=== PATIENT | female | born 1990 | race Caucasian/White ===

== ENCOUNTER 2018-10-16 02:35 | Inpatient (IN) ==
--- OUTSIDE RECORDS SUMMARY | 2018-10-16 02:42 | External Medical Summary | Continuity of Care Document ---
:1990 Author Name Taty Freed, Provider Address Unavailable Unavailable , Care Team Providers Name Role Phone Unavailable Unavailable Unavailable Salud [email or web address] [email or web address], NO Unavailable Unavailable Unavailable Unavailable Unavailable Problems Encounter for routine gynecological exam ination with Papanicolaou smear of cervix (V72.31) (Z01.419) Counseling for initiation of control method (V25.02) ( Z30.09) Allergies and Adverse Reactions No Known Drug Allergies (Allergy) Medications Previfem 0.25-35 MG-MCG Oral Tablet; ROBERTA E 1 TABLET BY MOUTH ONE TIME DAILY DIRECTED Lourdes Lund Start: 04-Nov-2014 Quantity: 28 Refills: 0 Procedures History of Oral Surgery Tooth Extraction Status: Completed Counseling for initiation of control method Immunizations Immunizations not documented Social History - Smoking Status Never smoker Interventions Discussion/SummaryI reviewed PAP results for Ms. CIERRA ROE. Pap Smear is normal Although pap smears are not recommended every year for many women, it is still recommended that you have a yearly gynecology visit. Plan of Treatment Planned Observations Planned Goals not documented Results No Known Results Results not documented
[2018-10-16] MEDS ORDERED: OXYTOCIN 30 UNITS/500 ML BAG IV PRN ×3 (03:15→19:27)
[2018-10-16 04:05] LABS: Hemoglobin 13.2 g/dL (12.0-16.0); Mean Corpuscular Volume 86.8 fL (80-100); Mean Platelet Volume 10.4 fL (7.4-10.4); Platelet Count 169 K/uL (130-400); RDW Coefficient of Variation 12.9 % (11.5-14.5); RDW Standard Deviation 41.2 fL (36.4-46.3); Red Blood Count 4.38 M/uL (4.2-5.4); White Blood Count 8.76 K/uL (4.8-10.8)
[2018-10-16 04:22] LABS: Mean Corpuscular Hgb Conc 34.7 g/dL (32-36)
[2018-10-16] MEDS ORDERED: BUPIVACAINE 0.25% 30 ML VIAL ONE (07:39)
[2018-10-16] MEDS ORDERED: fentaNYL citrate 100 MCG/2 ML VIAL ONE (07:40)
[2018-10-16] MEDS ORDERED: ePHEDrine sulfate 50 MG/ML AMP ONE (07:40)
[2018-10-16] MEDS ORDERED: fentaNYL 2MCG/ML ROPIV 1.25MG/ML 100 ML BAG EPI ONE (07:40)
[2018-10-16] MEDS: LACTATED RINGER'S 1,000 ML IV PRN ×3 (07:47→17:47)
[2018-10-16] MEDS ORDERED: DiphenhydrAMINE HCL 50 MG/ML VIAL IV PRN (07:52)
[2018-10-16] MEDS ORDERED: NALOXONE HCL 0.4 MG/1 ML VIAL/CARP IV PRN (07:52)
[2018-10-16] MEDS ORDERED: ONDANSETRON INJ 2 MG/ML 2 ML VIAL IV PRN (07:52)
[2018-10-16] MEDS ORDERED: ePHEDrine sulfate 50 MG/ML AMP IV PRN (07:52)
[2018-10-16] MEDS ORDERED: NALOXONE HCL 1 MG in SODIUM CHLORIDE 0.9% 1000ML 1,000 ML IV PRN (07:52)
[2018-10-16] MEDS ORDERED: NALBUPHINE HCL INJ 10 MG/ML AMP IV PRN (07:52)
--- NOTE | 2018-10-16 07:55 | Anesthesiology Consultation ---
Date of Service October 16, 2018 Assessment & Plan (1) Encounter for pre-operative examination: Chart Review Chart Review: Patient NOT seen in Pre Admission Testing and Acceptable Risk for Labor Epidural Consults Requested none History Height/Weight Height: 5 ft 3 in Weight: 77.564 kg Allergies Allergy/AdvReac Type Severity Reaction Status Date / Time No Known Allergies Allergy Verified 10/16/18 03:43 Medications Home Medications Medication Instructions Recorded Confirmed Last Taken vit no.[id number] 1 tab PO DAILY 10/16/18 10/16/18 10/14/18 08:00 [ Vitamin] Active Medications Generic Name Dose Route Start Last Admin Trade Name Freq PRN Reason Stop Dose Admin Lactated Ringer's 1,000 mls @ 125 mls/hr 10/16/18 03:15 10/16/18 07:47 Lr IV 10/18/18 03:14 999 mls/hr .Q8H PRN Administration L&D Protocol Protocol Past Medical History Medical History [place] teeth removed healthy Exercise / Class Metabolic Activity II 4-5 Yardwork/Stairs/Walk up hill Past Surgical History Surgical History History of tonsillectomy Past Anesthesia History No Hx of Anesthesia Complications and No Family Hx of Anesthesia Complications History of PONV No Hx of PONV and No Hx of Motion Sickness Social History Smoking Status: Never smoker Do You Dip or Chew Tobacco: No Hx Alcohol Use: No Hx Substance Use: No substance use type: does not use Physical Exam Vital Signs Last Vital Signs Temp 36.5 C 10/16/18 07:10 Pulse 72 10/16/18 08:10 Resp 20 10/16/18 07:10 BP 135/84 10/16/18 08:10 Pulse Ox 100 10/16/18 08:07 Testing Laboratory Results 10/16/18 03:54
[2018-10-16] MEDS: fentaNYL 2MCG/ML ROPIV 1.25MG/ML 100 ML BAG EPI PRN ×3 (09:06→18:11)
[2018-10-16] MEDS ORDERED: METHYLERGONOVINE MALEATE 0.2 MG/ML AMP ONE (19:10)
[2018-10-16] MEDS ORDERED: DIPHTHERIA/TETANUS/PERTUSSIS 0.5 ML SYR/VIAL IM ONE (19:27)
[2018-10-16] MEDS ORDERED: BISACODYL 10 MG SUPP PR PRN (19:27)
[2018-10-16] MEDS ORDERED: BENZOCAINE 20% AER SPR 82.5 GM CAN EXT PRN (19:27)
[2018-10-16] MEDS ORDERED: HYDROCORTISONE ACETATE 25 MG SUPP PR PRN (19:27)
[2018-10-16] MEDS ORDERED: SUPERCREAM 0.870% 15 GM JAR EXT PRN (19:27)
[2018-10-16] MEDS ORDERED: OXYCODONE/ACETAMINOPHEN 5mg/325mg TAB PO PRN (19:27)
[2018-10-16] MEDS ORDERED: METHYLERGONOVINE MALEATE 0.2 MG/ML AMP IM ONE (19:27)
[2018-10-16] MEDS: IBUPROFEN 600 MG TAB PO PRN (20:05)
--- NOTE | 2018-10-16 20:10 | Anesthesia Procedure Note ---
Date of Service October 16, 2018 Anesthesia Post Epidural Note Vital Signs Vital Signs: Temp Pulse Resp BP Pulse Ox 36.8 C 93 H 18 118/69 99 10/16/18 19:13 10/16/18 19:58 10/16/18 19:43 10/16/18 19:58 10/16/18 19:03 Notes Mental Status: alert / awake / arousable Patient Amnestic to Procedure: No Nausea / Vomiting: adequately controlled Pain: adequately controlled Airway Patency, RR, SpO2: stable & adequate BP & HR: stable & adequate Hydration State: stable & adequate Neuraxial Anesthesia: was administered and sensory block is resolving Anesthetic Complications: no major complications apparent and Pt Satisfied with anesthetic care Epidural: Removed without complications and With tip intact
[2018-10-16] MEDS: DOCUSATE SODIUM 100 MG CAP PO SCH (21:18)
[2018-10-16] MEDS: ACETAMINOPHEN 325 MG TAB PO PRN (22:59)
--- NOTE | 2018-10-16 23:38 | Operative Report ---
DATE OF OPERATION: 10/16/2018 DELIVERY NOTE She was admitted in active labor. Blood type is O positive, group B strep negative. Due date is 10/17/2018. Started out with a spontaneous unstimulated labor, spontaneous rupture of membranes. Eventually she requested and received epidural anesthesia for pain control. She started to push. Contractions were sporadic. She was not making much progress, so we augmented her contractions with IV Pitocin to get them down to a good rate and then she began to push and pushed some on her knees and eventually crowned the , pushed out with a tight nuchal cord which had to be clamped and cut. The position was an LOP position. After head crowned and cord was cut, shoulders were delivered without difficulty. was suctioned through the mouth and the nose before delivery of the body and was handed off for some resuscitation. Cord blood was taken with IV Pitocin running. Placenta was removed intact. There was a little bit of uterine atony following this. Placental rate was turned up. She was given 0.2 of Methergine. Inspection of the perineum revealed a very superficial first-degree laceration at about 4 o'clock in the vaginal opening and this was repaired with a running Vicryl out and to beyond the hymenal ring. A separate suture was used to approximate the bulbocavernosus muscles, that was a deep suture, and then a running subcuticular suture was used to approximate the perineal skin edges. Following this, vag exam including rectovaginal examination revealed no hematoma formation or sponges in the vagina. Estimated blood loss was 300 mL. I attest to the content of the Intraoperative Record and any orders documented therein. Any exception s are noted below.
[2018-10-17] MEDS: IBUPROFEN 600 MG TAB PO PRN ×3 (00:46→15:47)
[2018-10-17] MEDS: ACETAMINOPHEN W/CODEINE #3 1 TAB PO PRN ×2 (03:49→18:26)
[2018-10-17 06:03] LABS: Hematocrit (blood only) 35.5 % (37-47); Hemoglobin 12.1 g/dL (12.0-16.0); Mean Corpuscular Hgb Conc 34.1 g/dL (32-36); Mean Corpuscular Volume 87.7 fL (80-100); Mean Platelet Volume 9.6 fL (7.4-10.4); Platelet Count 141 K/uL (130-400); Red Blood Count 4.05 M/uL (4.2-5.4); White Blood Count 14.38 K/uL (4.8-10.8)
--- NOTE | 2018-10-17 08:44 | Obstetrical Progress Note ---
Date of Service October 17, 2018 Subjective Patient is seen and examined. She feels well, no complaints. Ambulating without dizziness Voiding without difficulty Tolerating regular diet with out N&V Bleeding is minimal No fever/ chills/ CP/ SOB/ N&V/ Leg pain Breast feeding without problems Vital Signs Temp Pulse Pulse Resp BP BP Pulse Ox 10/17/18 03:22 36.4 C L 77 16 117/74 94 10/16/18 23:35 36.9 C 86 16 113/75 96 10/16/18 21:40 36.4 C L 95 H 20 129/77 96 10/16/18 21:13 36.8 C 100 H 18 119/66 10/16/18 20:58 108 H 114/65 10/17/18 10/16/18 Range/Units 05:52 Unknown WBC 14.38 H (4.8-10.8) K/uL RBC 4.05 L (4.2-5.4) M/uL Hgb 12.1 (12.0-16.0) g/dL Hct 35.5 L (37-47) % MCV 87.7 (80-100) fL MCH 29.9 (25-34) pg MCHC 34.1 (32-36) g/dL RDW Std Deviation 42.0 (36.4-46.3) fL RDW Coeff of Hui 13.0 (11.5-14.5) % Plt Count 141 (130-400) K/uL MPV 9.6 (7.4-10.4) fL Amniotic Protein POS PE: General: Alert, orientedx3, NAD Abd: soft, NT, fundus firm, below Umbilicus Perineum intact, Lochia rubra minimal Ext; NT, no edema AP: 28 yo s/p , ppd# 1 VSS Afebrile doing well Continue routine care All questions were answered Results & Data Vital Signs (Past 12 Hours) Vital Signs Temp Pulse Pulse Resp BP BP Pulse Ox 10/17/18 03:22 36.4 C L 77 16 117/74 94 10/16/18 23:35 36.9 C 86 16 113/75 96 10/16/18 21:40 36.4 C L 95 H 20 129/77 96 10/16/18 21:13 36.8 C 100 H 18 119/66 10/16/18 20:58 108 H 114/65
[2018-10-17] MEDS: PRENATAL VITAMIN 1 TAB PO SCH (09:54)
[2018-10-17] MEDS: FERROUS SULFATE 325 MG TAB PO SCH (09:54)
[2018-10-17] MEDS: DOCUSATE SODIUM 100 MG CAP PO SCH ×2 (09:54→19:35)
[2018-10-17] MEDS: ACETAMINOPHEN 325 MG TAB PO PRN (12:33)
[2018-10-17] MEDS ORDERED: BISACODYL 5 MG TABEC PO SCH (20:00)
[2018-10-18] MEDS: IBUPROFEN 600 MG TAB PO PRN ×3 (01:25→14:20)
[2018-10-18] MEDS: ACETAMINOPHEN 325 MG TAB PO PRN (07:15)
[2018-10-18 07:24] LABS: Hemoglobin 11.5 g/dL (12.0-16.0)
[2018-10-18] MEDS: FERROUS SULFATE 325 MG TAB PO SCH (08:27)
[2018-10-18] MEDS: DOCUSATE SODIUM 100 MG CAP PO SCH (08:27)
[2018-10-18] MEDS: PRENATAL VITAMIN 1 TAB PO SCH (08:27)
--- NOTE | 2018-10-18 13:21 | Obstetrical Progress Note ---
Date of Service October 18, 2018 Assessment & Plan (1) normal course: PPD #2 pt doing well d/c home with instructions Subjective Ambulation: ambulating normally Voiding: no voiding problems Passing Gas:: Yes Diet Tolerance:: regular diet Lochia:: Small Feeding Type:: breast feeding Review of Systems All systems reviewed & are unremarkable except as noted in HPI & below Physical Exam Constitutional WD/WN, vitals as above well developed and well nourished Eyes PERRL, conjunctivae normal, anicteric sclerae Neck trachea midline, no thyromegaly Respiratory normal respiratory effort, lungs clear to auscultation Auscultation: no crackles, no rales and no wheezes Cardiovascular RRR, no murmur, no edema Gastrointestinal (Abdomen) normal bowel sounds, soft, nontender, no hepatosplenomegaly Uterus is below umbilicus Musculoskeletal no cyanosis or clubbing, extremities motor strength 5/5 Skin no rashes, warm and dry Neurologic patellar DTR's 2+ bilat, sensation intact Psychiatric A+Ox3, euthymic affect Genitourinary normal external appearance Results & Data Vital Signs (Past 12 Hours) Vital Signs Temp Pulse Resp BP Pulse Ox 10/18/18 07:45 36.4 C L 68 18 116/80 97
== END 2018-10-18 15:45 | disposition home or self-care (01) | DRG 807 ==
LOC: OPB 02:35 → 4S1 02:41 → MERGE 03:15 → 4S2 21:51
DX: Z3A.39 39 weeks gestation of pregnancy; Z37.0 Single live birth; O70.0 First degree perineal laceration during delivery; O69.81X0 Labor and delivery complicated by cord around neck, without compression, not applicable or unspecified

== ENCOUNTER 2020-10-13 06:56 | Inpatient (IN) ==
--- NOTE | 2020-10-12 09:38 | Anesthesiology Consultation ---
Date of Service October 12, 2020 Assessment & Plan (1) Encounter for pre-operative examination: COVID screening: Per assessment on 10/12: Travel screen negative, no known COVID- 19 positive contacts or current COVID-19 related symptoms. Surgeon arranged preop COVID testing (done 10/11; [facility])- negative. Chart Review Chart Review: entry engineer initiated History Surgery Operation Date: 10/13/20 09:00 Proposed Procedures p Section in LD - Joseph Garland MD Height/Weight Height: 5 ft 3 in Weight: 83.007 kg Allergies Allergy/AdvReac Type Severity Reaction Status Date / Time No Known Allergies Allergy Unverified 10/12/20 08:47 Medications Home Medications Medication Instructions Recorded Confirmed Last Taken Vitamin 1 tab PO DAILY 10/16/18 10/12/20 10/14/18 08:00 Lactobacillus acidophilus 10,000 mmu cells PO QPM 10/12/20 10/12/20 Unknown [Probiotic] Past Medical History Medical History Hx gestational diabetes with previous Past Family History Family History Other No family history of adverse response to anesthesia Past Surgical History Surgical History History of tonsillectomy Nausea and vomiting after administration of anesthetic agent [place] teeth removed Social History Smoking Status: Never smoker Hx Alcohol Use: No Hx Substance Use: No substance use type: does not use
[~2020-10-13 06:56] MED LIST: CITRIC ACID/SODIUM CITRATE 15 ML UDC PO SCH; ceFAZolin 2000MG 2,000 MG/15 ML SYR IV SCH
[2020-10-13 07:50] LABS: Basophils # (auto) 0.02 K/uL (0-0.2); Basophils % (auto) 0.3 %; Eosinophils # (auto) 0.05 K/uL (0-0.5); Eosinophils % (auto) 0.7 %; Hematocrit (blood only) 37.2 % (37-47); Hemoglobin 12.5 g/dL (12.0-16.0); Immature Granulocytes # (auto) 0.03 K/uL (0.00-0.02); Immature Granulocytes % (auto) 0.4 %; Lymphocytes # (auto) 1.76 K/uL (1.2-3.4); Lymphocytes % (auto) 23.7 %; Mean Corpuscular Hemoglobin 29.6 pg (25-34); Mean Corpuscular Hgb Conc 33.6 g/dL (32-36); Mean Corpuscular Volume 88.2 fL (80-100); Mean Platelet Volume 9.9 fL (7.4-10.4); Monocytes # (auto) 0.64 K/uL (0.11-0.59); Monocytes % (auto) 8.6 %; Neutrophils # (auto) 4.94 K/uL (1.4-6.5); Neutrophils % (auto) 66.3 %; Platelet Count 196 K/uL (130-400); RDW Coefficient of Variation 13.6 % (11.5-14.5); RDW Standard Deviation 44.3 fL (36.4-46.3); Red Blood Count 4.22 M/uL (4.2-5.4); White Blood Count 7.44 K/uL (4.8-10.8)
[2020-10-13] MEDS ORDERED: LACTATED RINGER'S 1,000 ML IV PRN (08:00)
[2020-10-13] MEDS ORDERED: OXYTOCIN 30 UNITS/500 ML BAG IV PRN (08:00)
--- NOTE | 2020-10-13 08:01 | Ultrasound Report ---
US OB limited HISTORY: None. presentation TECHNIQUE: Multiple transabdominal sonographic images of the pelvic structures were obtained assessi ng reyes scale appearance. COMPARISON: None FINDINGS: GENERAL OBSERVATIONS: Limited evaluation of the gravid uterus for positioning was performed and shows breech presenta tion. heart activity was detected and measuring 141 bpm. IMPRESSION: Breech presentation. heart rate is 141 bpm. Electronically signed by: Luz Jung DO 10/13/2020 8:00 AM
--- NOTE | 2020-10-13 08:13 | History & Physical Report ---
Date of Service October 13, 2020 Assessment & Plan (1) Breech presentation: Admission and Anticipated Discharge Date Admission Date: October 13, 2020 History of Present Illness Primary Care Provider: NO PCP 30 F P1001 at 39.3 weeks admitted for for breech presentation. Bedside ultrasound today confirms breech presentation. Allergies Allergy/AdvReac Type Severity Reaction Status Date / Time No Known Allergies Allergy Unverified 10/12/20 08:47 Home Medications Medication Instructions Recorded Confirmed Type Vitamin 1 tab PO DAILY 10/16/18 10/13/20 History Lactobacillus acidophilus 10,000 mmu cells PO QPM 10/12/20 10/13/20 History [Probiotic] Patient History Medical History Hx gestational diabetes with previous Surgical History History of tonsillectomy Nausea and vomiting after administration of anesthetic agent [place] teeth removed Family History Other No family history of adverse response to anesthesia Social History Smoking Status: Never smoker Second Hand Exposure: No; Hx Alcohol Use: No Hx Substance Use: No Preferred Language: Beninese Communication Ability: Effective Continuity Writer Required: No Beliefs That Will Affect Care: None marital status: Current Living Situation: Family Feels Safe at Home: Yes Safety Concerns: Feels Safe At This Time Assistive Devices: Glasses OB History x1 GDM with prior Review of Systems All systems reviewed & are unremarkable except as noted in HPI & below Physical Exam Constitutional: WD/WN, vitals as above well developed and comfortable Eyes: PERRL, conjunctivae normal, anicteric sclerae Respiratory: normal respiratory effort, lungs clear to auscultation Cardiovascular: RRR, no murmur, no edema Rate/Rhythm: regular rate Gastrointestinal (Abdomen): Inspection/Auscultation: abdomen normal to inspection Percussion/Palpation: abdomen soft Skin: no rashes, warm and dry Neurologic: patellar DTR's 2+ bilat, sensation intact Psychiatric: A+Ox3, euthymic affect Genitourinary: OB Exam Monitor Tracing: + external FHT monitor used, + external uterine monitor used, + category I and + normal FHT variability Results & Data ([facility]) Vital Signs (Past 12 Hours) Vital Signs Temp Pulse Resp BP 10/13/20 07:15 36.8 C 90 18 126/72 10/13/20 07:07 90 126/72 Laboratory Results 10/13/20 07:24 WBC 7.44 RBC 4.22 Hgb 12.5 Hct 37.2 MCV 88.2 MCH 29.6 MCHC 33.6 RDW Std Deviation 44.3 RDW Coeff of Hui 13.6 Plt Count 196 MPV 9.9 Immature Gran % (Auto) 0.4 Neut % (Auto) 66.3 Lymph % (Auto) 23.7 [place] % (Auto) 8.6 Eos % (Auto) 0.7 Baso % (Auto) 0.3 Neut # (Auto) 4.94 Lymph # (Auto) 1.76 [place] # (Auto) 0.64 H Eos # (Auto) 0.05 Baso # (Auto) 0.02 Immature Gran # (Auto) 0.03 H Monitoring External Monitor FHT Cat 1
[2020-10-13] MEDS ORDERED: LACTATED RINGER'S 1,000 ML IV SCH ×2 (08:15→13:30)
[2020-10-13] MEDS ORDERED: MoRPHine SULFATE PF 1 MG/ML 10 ML AMP/VIAL ONE (11:26)
[2020-10-13] MEDS ORDERED: fentaNYL citrate 100 MCG/2 ML VIAL ONE (11:26)
[2020-10-13] MEDS ORDERED: OXYTOCIN 10 UNITS/ML VIAL ONE (11:26)
[2020-10-13] MEDS ORDERED: NALOXONE HCL 0.4 MG/1 ML VIAL/CARP IV PRN (11:35)
[2020-10-13] MEDS ORDERED: LACTATED RINGER'S 500 ML IV PRN (11:35)
[2020-10-13] MEDS ORDERED: PROMETHAZINE HCL 25 MG in SODIUM CHLORIDE 0.9% 50 ML IV PRN ×2 (11:35→13:26)
[2020-10-13] MEDS ORDERED: ONDANSETRON INJ 2 MG/ML 2 ML VIAL IV PRN ×2 (11:35→13:26)
[2020-10-13] MEDS ORDERED: NALOXONE HCL 0.08 MG in SYRINGE 1.8 ML IV PRN (11:35)
[2020-10-13] MEDS ORDERED: MoRPHine SULFATE PF 1 MG/ML 10 ML AMP/VIAL INT SPINAL ONE (11:35)
[2020-10-13] MEDS ORDERED: NALOXONE HCL 1 MG in SODIUM CHLORIDE 0.9% 1000ML 1,000 ML IV PRN (11:35)
[2020-10-13] MEDS ORDERED: diphenhydrAMINE 50 MG/ML VIAL IV PRN ×2 (11:35→13:26)
[2020-10-13] MEDS ORDERED: ePHEDrine sulfate 50 MG/ML AMP IV PRN (11:35)
[2020-10-13] MEDS ORDERED: HYDROmorphone INJ 0.5 MG/0.5 ML SYR IV PRN (11:35)
[2020-10-13] MEDS ORDERED: SODIUM CHLORIDE 0.9% 1000ML 1,000 ML IV SCH (11:45)
[2020-10-13] MEDS ORDERED: NO NARCOTICS OR SEDATIVES SCH (11:45)
[2020-10-13] MEDS ORDERED: DC INTRASPINAL MORPHINE SCH (11:45)
[2020-10-13] MEDS ORDERED: PHENYLEPHRINE 100MCG/ML 5ML SYR ONE (12:15)
[2020-10-13] MEDS ORDERED: ePHEDrine sulfate 50 MG/ML SYR ONE (12:15)
--- NOTE | 2020-10-13 13:09 | Post Operative Brief Note ---
Immediate Post Op Note v1 Date of Surgery October 13, 2020 Pre & Post Diagnosis Operation Date: 10/13/20 09:00 Pre-Op Diagnosis: Breech presentation Post-Op Diagnosis: Footling breech presentation I identified the patient and participated in the time-out.: Yes Procedure Operation Date: 10/13/20 09:00 Actual Procedures p Section in LD; Live female child at 1229(Bilateral) - Joseph Garland MD Surgeon Joseph Garland MD Nursing Staffing Coordinator Dr Gonzales Estimated Blood Loss 550 Findings Consistent with Post-Op Diagnosis live female Apgars 9/9 double footling breech with nuchal cord x1 Fluids 1300 Specimens cord blood placenta Drains Gonzalez Catheter (Inserted after spinal anesthesia, patent and draining clear yellow urine throughout procedure) Anesthesia Type Spinal Complications none Disposition Accompanied Patient To Recovery: Yes Disposition: L&D Overlapping Procedure I was present for: the critical portions of procedure. I was immediately available: during the entire case. Back up surgeon: used during listed procedure.
[2020-10-13] MEDS ORDERED: KETOROLAC 30 MG/ML VIAL IV PRN (13:26)
[2020-10-13] MEDS ORDERED: BENZOCAINE 20% AER SPR 82.5 GM CAN EXT PRN (13:26)
[2020-10-13] MEDS ORDERED: SUPERCREAM 0.870% 15 GM JAR EXT PRN (13:26)
[2020-10-13] MEDS ORDERED: MAGNESIUM HYDROXIDE SUSP 30 ML UDC PO PRN (13:26)
[2020-10-13] MEDS ORDERED: MEPERIDINE HCL 50 MG/ML CARP IV PRN (13:26)
[2020-10-13] MEDS ORDERED: SENNA 8.6 MG TAB PO PRN (13:26)
[2020-10-13] MEDS ORDERED: HYDROCORTISONE ACETATE 25 MG SUPP PR PRN (13:26)
[2020-10-13] MEDS ORDERED: diphenhydrAMINE Capsule 25 MG CAP PO PRN (13:26)
[2020-10-13] MEDS ORDERED: DIPHTHERIA/TETANUS/PERTUSSIS 0.5 ML SYR/VIAL IM ONE (13:26)
[2020-10-13] MEDS ORDERED: OXYTOCIN 20 UNITS in LACTATED RINGER'S 1,000 ML IV SCH (14:30)
--- NOTE | 2020-10-13 15:06 | Anesthesiology Progress Note ---
Date of Service October 13, 2020 Anesthesia Post Procedure Vital Signs Vital Signs: Temp Pulse Resp BP Pulse Ox 10/13/20 15:02 91 H 99 10/13/20 14:57 92 H 99 10/13/20 14:56 67 106/62 10/13/20 14:52 79 98 10/13/20 14:47 95 H 98 10/13/20 14:46 94 H 114/71 10/13/20 14:42 86 97 10/13/20 14:40 36.2 C L 10/13/20 14:37 85 97 10/13/20 14:36 97 H 113/68 10/13/20 14:32 95 H 97 10/13/20 14:27 91 H 97 10/13/20 14:26 89 114/62 10/13/20 14:22 81 97 10/13/20 14:17 81 97 10/13/20 14:16 77 110/66 10/13/20 14:12 79 96 10/13/20 14:07 72 96 10/13/20 14:06 71 112/66 10/13/20 14:02 82 96 10/13/20 13:57 81 96 10/13/20 13:56 81 109/65 10/13/20 13:52 101 H 97 10/13/20 13:47 86 96 10/13/20 13:46 77 116/73 10/13/20 13:42 75 97 10/13/20 13:37 76 97 10/13/20 13:36 73 112/74 10/13/20 13:32 78 97 10/13/20 13:27 89 99 10/13/20 13:25 36.4 C L 77 18 111/66 10/13/20 13:22 79 99 10/13/20 13:17 84 116/70 100 10/13/20 11:48 77 100 10/13/20 11:43 88 100 10/13/20 11:38 113 H 99 10/13/20 11:33 79 100 10/13/20 11:32 98 H 94 10/13/20 11:28 86 100 10/13/20 11:23 88 100 10/13/20 11:18 80 98 10/13/20 11:13 80 99 10/13/20 11:08 90 99 10/13/20 11:03 78 99 10/13/20 10:58 79 98 10/13/20 10:53 84 98 10/13/20 10:48 81 97 10/13/20 10:43 86 98 10/13/20 10:42 36.7 C 83 18 104/68 10/13/20 10:38 85 98 10/13/20 10:33 94 H 97 10/13/20 10:28 88 98 10/13/20 10:23 89 98 10/13/20 10:18 92 H 97 10/13/20 10:13 94 H 97 10/13/20 10:08 79 98 10/13/20 10:03 92 H 97 10/13/20 09:58 84 97 10/13/20 09:53 86 96 10/13/20 09:48 83 98 10/13/20 09:43 85 97 10/13/20 09:38 84 97 10/13/20 09:33 82 96 10/13/20 09:28 83 96 10/13/20 09:23 88 98 10/13/20 07:15 36.8 C 90 18 126/72 10/13/20 07:07 90 126/72 Transfer of Care Handoff Completed per policy Notes Mental Status: alert / awake / arousable and participated in evaluation Patient Amnestic to Procedure: Yes Nausea / Vomiting: adequately controlled Pain: adequately controlled Airway Patency, RR, SpO2: stable & adequate BP & HR: stable & adequate Hydration State: stable & adequate Anesthetic Complications: no major complications apparent and Pt Satisfied with anesthetic care
[2020-10-13] MEDS: KETOROLAC 30 MG/ML VIAL IV PRN (16:51)
[2020-10-13] MEDS: SIMETHICONE 80 MG CHEW PO SCH ×2 (17:05→20:34)
[2020-10-13] MEDS: DOCUSATE SODIUM 100 MG CAP PO SCH (20:34)
[2020-10-13] MEDS: ADVANCED PROBIOTIC 1250 MG CAPSULE PO SCH (20:39)
[2020-10-14] MEDS: KETOROLAC 30 MG/ML VIAL IV PRN (00:08)
[2020-10-14] MEDS: oxyCODONE/ACETAMINOPHEN 5mg/325mg TAB PO PRN ×5 (06:34→23:48)
[2020-10-14] MEDS: IBUPROFEN 600 MG TAB PO PRN ×5 (06:36→23:47)
[2020-10-14 06:45] LABS: Basophils # (auto) 0.02 K/uL (0-0.2); Basophils % (auto) 0.2 %; Eosinophils # (auto) 0.07 K/uL (0-0.5); Eosinophils % (auto) 0.7 %; Hematocrit (blood only) 33.4 % (37-47); Hemoglobin 11.3 g/dL (12.0-16.0); Immature Granulocytes # (auto) 0.02 K/uL (0.00-0.02); Immature Granulocytes % (auto) 0.2 %; Lymphocytes % (auto) 14.4 %; Mean Corpuscular Hemoglobin 29.7 pg (25-34); Mean Corpuscular Hgb Conc 33.8 g/dL (32-36); Mean Corpuscular Volume 87.7 fL (80-100); Monocytes # (auto) 0.72 K/uL (0.11-0.59); Monocytes % (auto) 7.4 %; Neutrophils # (auto) 7.48 K/uL (1.4-6.5); Neutrophils % (auto) 77.1 %; Platelet Count 148 K/uL (130-400); RDW Coefficient of Variation 13.8 % (11.5-14.5); RDW Standard Deviation 43.9 fL (36.4-46.3); Red Blood Count 3.81 M/uL (4.2-5.4); White Blood Count 9.71 K/uL (4.8-10.8)
[2020-10-14] MEDS: DOCUSATE SODIUM 100 MG CAP PO SCH ×2 (07:56→19:50)
[2020-10-14] MEDS: PRENATAL VITAMIN 1 TAB PO SCH (07:56)
[2020-10-14] MEDS: SIMETHICONE 80 MG CHEW PO SCH ×4 (07:56→19:50)
[2020-10-14] MEDS: FERROUS SULFATE 325 MG TAB PO SCH (07:56)
[2020-10-14] MEDS ORDERED: PRENATAL VITAMIN 1 TAB PO SCH (09:00)
--- NOTE | 2020-10-14 09:40 | Obstetrical Progress Note ---
Date of Service October 14, 2020 POD#1 doing well passing gas tolerating diet out of bed Physical Exam Constitutional WD/WN, vitals as above well developed and comfortable abdomen soft and non-tender fundus firm incision c/d/i Results & Data ([facility]) Vital Signs (Past 12 Hours) Vital Signs Temp Pulse Pulse Resp BP Pulse Ox 10/14/20 07:35 36.5 C 75 18 106/70 97 10/14/20 04:40 36.9 C 69 20 106/67 97 10/14/20 03:20 20 96 10/14/20 02:20 20 97 10/14/20 01:20 20 96 10/14/20 00:20 37.2 C 72 20 106/69 96 10/13/20 22:00 16 98 Laboratory Results 10/13/20 10/13/20 10/13/20 07:24 07:24 08:05 WBC 7.44 RBC 4.22 Hgb 12.5 Hct 37.2 MCV 88.2 MCH 29.6 MCHC 33.6 RDW Std Deviation 44.3 RDW Coeff of Hui 13.6 Plt Count 196 MPV 9.9 Immature Gran % (Auto) 0.4 Neut % (Auto) 66.3 Lymph % (Auto) 23.7 [place] % (Auto) 8.6 Eos % (Auto) 0.7 Baso % (Auto) 0.3 Neut # (Auto) 4.94 Lymph # (Auto) 1.76 [place] # (Auto) 0.64 H Eos # (Auto) 0.05 Baso # (Auto) 0.02 Immature Gran # (Auto) 0.03 H COVID-19 Eval Order Covid19 [facility] SARS-CoV-2, RNA, NAAT Blood Type O Positive Antibody Screen NEGATIVE 10/13/20 10/14/20 08:05 06:11 WBC 9.71 RBC 3.81 L Hgb 11.3 L Hct 33.4 L MCV 87.7 MCH 29.7 MCHC 33.8 RDW Std Deviation 43.9 RDW Coeff of Hui 13.8 Plt Count 148 MPV 10.0 Immature Gran % (Auto) 0.2 Neut % (Auto) 77.1 Lymph % (Auto) 14.4 [place] % (Auto) 7.4 Eos % (Auto) 0.7 Baso % (Auto) 0.2 Neut # (Auto) 7.48 H Lymph # (Auto) 1.40 [place] # (Auto) 0.72 H Eos # (Auto) 0.07 Baso # (Auto) 0.02 Immature Gran # (Auto) 0.02 COVID-19 Eval Order SARS-CoV-2, RNA, NAAT NEGATIVE Blood Type Antibody Screen
--- NOTE | 2020-10-14 11:22 | Operative Report (OR) ---
DATE OF PROCEDURE: 10/14/2020 PREOPERATIVE DIAGNOSIS: Term with breech at term. POSTOPERATIVE DIAGNOSES: 1. Term with breech at term. 2. Double footling breech presentation with nuchal cord x1. PROCEDURE: Primary section, low segment transverse. SURGEON: Joseph Garladn MD. ASSEMBLER UTILITY BUILDINGS: Nichol Gonzales MD. ANESTHESIA: Spinal. CLINICAL HISTORY: The patient is a 30-year-old female, para 1-0-0-1, at 39 weeks and 3 days, admitte d for an elective primary section for breech presentation. The patient had an ultrasound on the day of procedure, confirming the presentation of breech. She had a timeout before the surgery a nd antibiotics were given preop. DESCRIPTION OF PROCEDURE: Under satisfactory spinal anesthesia, the patient was prepped and draped i n the usual sterile fashion. A low Pfannenstiel incision, carrying the incision down through success luh layers was done without difficulty. Upon entering into the abdominal cavity, pickups with teeth and Metzenbaum scissors were used to develop a bladder flap. The uterus was noted to be sharply dex trorotated to the right. With Dr. Gonzales assisting and putting counter pressure to deviate the uterus towards the center and to the left for exposure, a low segment transverse incision over the lower [place] r[place] segment was made. The incision was widened in the AP diameter. Amniotic sac was nicked, found to be clear. The was then found to be in the double footling breech presentation, and using a towel, the feet were grabbed and the infant was then delivered successfully in the breech presentati on without difficulty. The nuchal cord was wrapped once and this was reduced at the time of delivery . The cord was doubly clamped and cut after 1 minute of delayed cord clamping. The infant was a live female, Apgars were 9 and 9. weight was pending. Cord blood was obtained. Placenta delivere d spontaneously and intact. Uterus was then exteriorized. Ring forceps were then placed on both angles and the inferior margin. The uterus was closed in a double layer closure with 0 Vicryl suture in a continued interlocking fas hion followed by a second imbricating suture using 0 Vicryl suture. Tubes and ovaries bilaterally we re found to be within normal limits. The contents of the pelvic cavity were then irrigated to clear. The initial sponge, needle, and instrument counts were found to be correct. The uterus was then kannan vesna back into the normal anatomical position. The lower uterine segment was once more inspected and no active bleeding was noted. The fascia was then reapproximated from both ends using 0 Vicryl suture in a continuous interlocking fashion. Subcuticular space was then irrigated and the subcuticular layer was then closed with 3-0 p maxwell suture followed by closure of the skin with 4-0 Monocryl suture. Steri-Strips and Telfa and ethel ssing were then applied. Clear urine was noted from the Gonzalez. Estimated blood loss was 550 mL. To sundeep fluid was 1300 mL. The final sponge, needle and instrument counts were found to be correct. The patient was then placed supine on the stretcher. She was taken to recovery room in stable condition. Please note, Dr. Gonzales was used as the ambulance assistant. He provided necessary exposure, retraction and h elp with delivery of the breech presentation. Job ID: [id number]
[2020-10-14] MEDS ORDERED: bisacodyL 5 MG TABEC PO SCH (20:00)
[2020-10-14] MEDS: ADVANCED PROBIOTIC 1250 MG CAPSULE PO SCH (22:12)
[2020-10-15] MEDS: IBUPROFEN 600 MG TAB PO PRN ×2 (05:33→10:39)
[2020-10-15] MEDS: oxyCODONE/ACETAMINOPHEN 5mg/325mg TAB PO PRN ×2 (05:33→10:38)
[2020-10-15 07:42] LABS: Hematocrit (blood only) 33.5 % (37-47); Hemoglobin 11.3 g/dL (12.0-16.0)
[2020-10-15] MEDS: SIMETHICONE 80 MG CHEW PO SCH (08:10)
[2020-10-15] MEDS: FERROUS SULFATE 325 MG TAB PO SCH (08:10)
[2020-10-15] MEDS: DOCUSATE SODIUM 100 MG CAP PO SCH (08:10)
[2020-10-15] MEDS: PRENATAL VITAMIN 1 TAB PO SCH (08:10)
--- NOTE | 2020-10-15 08:55 | Obstetrical Progress Note ---
Date of Service October 15, 2020 Assessment & Plan (1) delivery delivered: c/sec day #3 pt doing well no complaints d/c home with instructions Subjective Ambulation: ambulating normally Voiding: no voiding problems Passing Gas:: Yes Diet Tolerance:: clear liquids Lochia:: Small Feeding Type:: breast feeding Review of Systems All systems reviewed & are unremarkable except as noted in HPI & below Physical Exam Constitutional WD/WN, vitals as above well developed and well nourished Eyes PERRL, conjunctivae normal, anicteric sclerae ENMT external ear and nose normal, oropharynx normal Neck trachea midline, no thyromegaly Respiratory normal respiratory effort, lungs clear to auscultation Cardiovascular RRR, no murmur, no edema Chest (Breasts) normal inspection/palpation of breasts Gastrointestinal (Abdomen) normal bowel sounds, soft, nontender, no hepatosplenomegaly Musculoskeletal no cyanosis or clubbing, extremities motor strength 5/5 Skin no rashes, warm and dry + incision (Clean,dry and intact) Neurologic patellar DTR's 2+ bilat, sensation intact Psychiatric A+Ox3, euthymic affect Genitourinary normal external appearance Lymphatic no cervical or axillary lymphadenopathy Results & Data ([facility]) Vital Signs (Past 12 Hours) Vital Signs Temp Pulse Resp BP 10/15/20 00:00 36.8 C 77 18 124/83
[2020-10-15] MEDS ORDERED: bisacodyL 10 MG SUPP PR PRN (13:23)
--- NOTE | 2020-10-22 21:39 | Discharge Summary (DS) ---
DATE OF ADMISSION: 10/13/2020 DATE OF DISCHARGE: 10/15/2020 DATE OF SURGERY: 10/14/2020 REASON FOR ADMISSION AND HOSPITAL COURSE: The patient is a 30-year-old female, para 1-0-0-1, at 39 w eeks and 3 days, admitted for elective primary section due to breech presentation. Ultrasou nd on the day of procedure confirmed presentation of breech. The patient underwent primary section under spinal anesthesia, delivering a live female. Apgars were 9 and 9. Hospital course was uncomplicated. The patient was discharged home in stable condition. CONDITION ON DISCHARGE: Stable. DIET: Regular diet on discharge. MEDICATIONS: Include Percocet and Motrin. FOLLOWUP: Will be in the office in 1 week. Job ID: [id number]
== END 2020-10-15 11:35 | disposition home or self-care (01) | DRG 788 ==
LOC: 4S1 06:56 → EDSTATUS 09:00 → 4S2 16:23

== ENCOUNTER 2020-10-21 07:51 | Observation (INO) ==
[2020-10-21] MEDS ORDERED: SODIUM CHLORIDE 0.9% 1000ML 1,000 ML IV SCH (08:15)
[2020-10-21 08:32] LABS: Basophils # (auto) 0.03 K/uL (0-0.2); Basophils % (auto) 0.3 %; Eosinophils # (auto) 0.12 K/uL (0-0.5); Eosinophils % (auto) 1.1 %; Hematocrit (blood only) 36.2 % (37-47); Immature Granulocytes # (auto) 0.04 K/uL (0.00-0.02); Immature Granulocytes % (auto) 0.4 %; Lymphocytes % (auto) 12.1 %; Mean Corpuscular Hemoglobin 29.5 pg (25-34); Mean Corpuscular Hgb Conc 33.1 g/dL (32-36); Mean Corpuscular Volume 88.9 fL (80-100); Mean Platelet Volume 9.2 fL (7.4-10.4); Monocytes # (auto) 0.75 K/uL (0.11-0.59); Neutrophils # (auto) 8.47 K/uL (1.4-6.5); Neutrophils % (auto) 79.1 %; Platelet Count 252 K/uL (130-400); RDW Standard Deviation 42.3 fL (36.4-46.3); Red Blood Count 4.07 M/uL (4.2-5.4); White Blood Count 10.71 K/uL (4.8-10.8)
--- NOTE | 2020-10-21 08:33 | Emergency Department Note ---
History of Present Illness General Chief complaint: Vaginal Bleeding Stated complaint: VAG BLEEDING, Time Seen by Provider: 10/21/20 08:05 Source: patient and RN notes reviewed Mode of arrival: EMS Limitations: no limitations History of Present Illness Provider complaint: VB, syncope This pt is a 30 yo female who presents to the ED 8 d post and states she was healing well. Pt began passing clots vaginally today and then has a syncopal episode. Her witnessed the incident and states she did not injure herself. She went on a walk with her last evening, but does not feel she overexerted. Pt states delivery was uneventful and baby is doing well. Pt is bottle-feeding. Home Medications Medication Instructions Recorded Confirmed Type Vitamin 1 tab PO PM 10/16/18 10/21/20 History Probiotic 10,000 mmu cells PO QPM 10/12/20 10/21/20 History oxycodone-acetaminophen [Percocet] 1 - 2 tab PO Q4H #20 tab 10/15/20 10/21/20 Rx ibuprofen 200 mg PO Q4H PRN 10/21/20 10/21/20 History ferrous sulfate 325 mg PO BIDM #30 tab 10/22/20 Rx Allergies Allergy/AdvReac Type Severity Reaction Status Date / Time No Known Allergies Allergy Unverified 10/21/20 08:42 Past Med/Surg History Medical History Anemia Hx gestational diabetes with previous Surgical History History of tonsillectomy Nausea and vomiting after administration of anesthetic agent [place] teeth removed Family History Other No family history of adverse response to anesthesia Social History Smoking Status: Never smoker Second Hand Exposure: No; Do You Dip or Chew Tobacco: No; Hx Alcohol Use: No Hx Substance Use: No Preferred Language: Mongolian Communication Ability: Effective Molder Sweep Required: No Beliefs That Will Affect Care: None marital status: Current Living Situation: Spouse Other Information That Helps Us Care for You: No Feels Safe at Home: Yes Safety Concerns: Feels Safe At This Time Assistive Devices: None Review of Systems See HPI for pertinent positives & negatives. and A total of 10 systems reviewed and were otherwise negative Physical Exam Vital Signs Vital Signs - 24 hr 10/21/20 07:56 Temperature 37.0 C Temperature Source Oral Pulse Rate 81 Pulse Rhythm Regular Pulse Strength Normal Respiratory Rate 18 Respiratory Effort / Characteristics Non-Labored Spontaneous Respiratory Depth Normal Respiratory Pattern Regular Blood Pressure 132/95 Blood Pressure Mean 107 Pulse Oximetry 100 Oxygen Delivery Method Room Air Sepsis Recent Fever Within 48 Hours No Sepsis New/Unexplained Change in Mental Status No Sepsis Action Taken by Nursing No Action Required Vital signs reviewed. General: Well-appearing 30 yo female, in no significant distress. HEENT: Pale conjunctiva, PERRLA, neck supple. Atraumatic. Cardiovascular: Regular rate and rhythm, no extra sounds. Pulmonary: Clear to auscultation bilaterally, normal work of breathing. Abdomen: Soft, nontender, nondistended, positive bowel sounds. Uterine fundus palpated at 2 fingers below umbilicus. Musculoskeletal: Atraumatic, no peripheral edema. Pelvic: Normal external female genitals, large clot removed vaginally, significant bleeding from os. Neurologic: Patient awake alert and oriented x 3 Skin: Warm, dry, no rash Course Administered Medications Discontinued Medications Acetaminophen (Acetaminophen 325 Mg Tab) 650 mg PO Q4 PRN PRN Reason: pain Stop: 11/20/20 17:30 Last Admin: 10/21/20 21:51 Dose: 650 mg Documented by: [id number] Acetaminophen (Acetaminophen 325 Mg Tab) Confirm Administered Dose 650 mg .ROUTE .STK-MED ONE Stop: 10/21/20 17:37 Last Admin: 10/21/20 17:39 Dose: 650 mg Documented by: [id number] Diphenhydramine HCl (Diphenhydramine Capsule 25 Mg Cap) 25 mg PO NOW ONE Stop: 10/21/20 22:50 Last Admin: 10/21/20 23:21 Dose: 25 mg Documented by: [id number] Ferrous Sulfate (Ferrous Sulfate 325 Mg Tab) 325 mg PO BIDM [facility] Stop: 11/20/20 12:24 Last Admin: 10/22/20 08:48 Dose: 325 mg Documented by: [id number] Admin: 10/21/20 18:09 Dose: Not Given Documented by: [id number] Admin: 10/21/20 14:16 Dose: 325 mg Documented by: [id number] Sodium Chloride (Nss 1000ml) 1,000 mls @ 999 mls/hr IV .Q1H1M LUBNA Stop: 10/21/20 09:15 Last Infusion: 10/21/20 09:24 Dose: 0 mls/hr Documented by: [id number] Admin: 10/21/20 08:23 Dose: 999 mls/hr Documented by: [id number] Sodium Chloride (Nss 1000ml) 1,000 mls @ 999 mls/hr IV .Q1H1M ONE Stop: 10/21/20 10:56 Last Infusion: 10/21/20 11:08 Dose: 0 mls/hr Documented by: [id number] Admin: 10/21/20 10:00 Dose: 999 mls/hr Documented by: [id number] Oxytocin 20 units/ Lactated (Ringer's) 1,002 mls @ 999 mls/hr IV .Q1H1M STA Stop: 10/21/20 12:50 Last Infusion: 10/21/20 13:09 Dose: 0 mls/hr Documented by: [id number] Cosigned by: [id number] Admin: 10/21/20 12:00 Dose: 999 mls/hr Documented by: [id number] Cosigned by: [id number] Lactated Ringer's (Lr) 1,000 mls @ 125 mls/hr IV .Q8H LUBNA Stop: 11/20/20 12:14 Last Admin: 10/21/20 13:50 Dose: 125 mls/hr Documented by: [id number] Clindamycin Phosphate 900 mg/ (Dextrose) 56 mls @ 112 mls/hr IV ONE STA Stop: 10/21/20 12:46 Last Infusion: 10/21/20 13:50 Dose: 0 mls/hr Documented by: [id number] Admin: 10/21/20 13:06 Dose: 112 mls/hr Documented by: [id number] Clindamycin Phosphate 900 mg/ (Dextrose) 56 mls @ 112 mls/hr IV Q8H LUBNA Stop: 10/31/20 20:59 Last Infusion: 10/22/20 04:31 Dose: 0 mls/hr Documented by: [id number] Admin: 10/22/20 04:01 Dose: 112 mls/hr Documented by: [id number] Infusion: 10/21/20 21:52 Dose: 0 mls/hr Documented by: [id number] Admin: 10/21/20 20:37 Dose: 112 mls/hr Documented by: [id number] Oxytocin 20 units/ Lactated (Ringer's) 1,002 mls @ 0 mls/hr IV .Q0M LUBNA Stop: 11/20/20 20:59 Last Infusion: 10/22/20 03:00 Dose: 0 mls/hr Documented by: [id number] Cosigned by: [id number] Admin: 10/21/20 21:51 Dose: 125 mls/hr Documented by: [id number] Cosigned by: [id number] Cefazolin Sodium (Ancef 2000mg) 2,000 mg in 15 mls @ 3.75 mls/min IV Q8H LUBNA Stop: 10/31/20 22:59 Last Admin: 10/21/20 23:20 Dose: 3.75 mls/min Documented by: [id number] Methylergonovine Maleate (Methylergonovine Maleate 0.2 Mg/Ml Amp) 0.2 mg IM ONE STA Stop: 10/21/20 11:46 Last Admin: 10/21/20 12:15 Dose: 0.2 mg Documented by: [id number] Cosigned by: [id number] Methylergonovine Maleate (Methylergonovine Maleate 0.2 Mg Tab) 0.2 mg PO Q4 LUBNA Stop: 11/20/20 15:59 Last Admin: 10/22/20 08:48 Dose: 0.2 mg Documented by: [id number] Admin: 10/22/20 04:01 Dose: 0.2 mg Documented by: [id number] Admin: 10/22/20 04:01 Dose: Not Given Documented by: [id number] Admin: 10/21/20 20:37 Dose: 0.2 mg Documented by: [id number] Admin: 10/21/20 16:39 Dose: 0.2 mg Documented by: [id number] Misoprostol (Misoprostol 200 Mcg Tab) 800 mcg MD NOW ONE Stop: 10/21/20 11:46 Last Admin: 10/21/20 12:15 Dose: 800 mcg Documented by: [id number] Misoprostol (Misoprostol 100 Mcg Tab) Confirm Administered Dose 1,000 mcg .ROUTE .STK-MED ONE Stop: 10/21/20 23:59 Last Admin: 10/22/20 01:07 Dose: 1,000 mcg Documented by: [id number] Morphine Sulfate (Morphine Sulfate 2 Mg/Ml Carp) 2 mg IV NOW STA Stop: 10/21/20 11:45 Last Admin: 10/21/20 12:15 Dose: Not Given Documented by: [id number] Morphine Sulfate (Morphine Sulfate 2 Mg/Ml Carp) Confirm Administered Dose 2 mg .ROUTE .STK-MED ONE Stop: 10/21/20 11:45 Last Admin: 10/21/20 11:49 Dose: 2 mg Documented by: [id number] Ondansetron HCl (Ondansetron Inj 2 Mg/Ml 2 Ml Vial) 4 mg IV NOW STA Stop: 10/21/20 09:59 Last Admin: 10/21/20 10:00 Dose: Not Given Documented by: [id number] Ondansetron HCl (Ondansetron Inj 2 Mg/Ml 2 Ml Vial) Confirm Administered Dose 4 mg .ROUTE .STK-MED ONE Stop: 10/21/20 09:59 Last Admin: 10/21/20 10:00 Dose: 4 mg Documented by: [id number] Ondansetron HCl (Ondansetron Inj 2 Mg/Ml 2 Ml Vial) 4 mg IV Q6H PRN PRN Reason: Nausea And Vomiting Stop: 11/20/20 12:13 Last Admin: 10/21/20 17:39 Dose: 4 mg Documented by: [id number] Critical Care Time Critical Care Time: Yes I have personally spent 40 minutes of critical care time in the direct management of this patient. This was a life/limb threatening event. This 40 min utes is in excess of all separately billable procedures. Medical Decision Making Differential Diagnosis Etiologies such as threatened AB, miscarriage, ectopic , dysfunction uterine bleeding, bleeding dyscrasia, trauma, infection, as well as others were entertained. Medical Records Attestation: I reviewed the patient's medical records. Home Medications Current Medication List: was personally reviewed by me Laboratory Data Attestation: I reviewed the patient's lab results. Result diagrams: 10/22/20 09:21 10/21/20 08:18 Lab Results 10/21/20 10/21/20 10/21/20 Range/Units 08:18 08:18 08:18 WBC 10.71 (4.8-10.8) K/uL RBC 4.07 L (4.2-5.4) M/uL Hgb 12.0 (12.0-16.0) g/dL Hct 36.2 L (37-47) % MCV 88.9 (80-100) fL MCH 29.5 (25-34) pg MCHC 33.1 (32-36) g/dL RDW Std Deviation 42.3 (36.4-46.3) fL RDW Coeff of Hui 13.0 (11.5-14.5) % Plt Count 252 (130-400) K/uL MPV 9.2 (7.4-10.4) fL Immature Gran % (Auto) 0.4 % Neut % (Auto) 79.1 % Lymph % (Auto) 12.1 % [place] % (Auto) 7.0 % Eos % (Auto) 1.1 % Baso % (Auto) 0.3 % Neut # (Auto) 8.47 H (1.4-6.5) K/uL Lymph # (Auto) 1.30 (1.2-3.4) K/uL [place] # (Auto) 0.75 H (0.11-0.59) K/uL Eos # (Auto) 0.12 (0-0.5) K/uL Baso # (Auto) 0.03 (0-0.2) K/uL Immature Gran # (Auto) 0.04 H (0.00-0.02) K/uL Sodium 138 (136-145) mmol/L Potassium 4.4 (3.5-5.1) mmol/L Chloride 108 H (98-107) mmol/L Carbon Dioxide 26 (21-32) mmol/L Anion Gap 4.0 (3-11) BUN 16 (7-18) mg/dl Creatinine 0.62 (0.6-1.2) mg/dl Est Cr Clr Drug Dosing Not Reportable Est GFR ( Amer) 140.2 ml/min Est GFR (Non-Af Amer) 121.0 ml/min BUN/Creatinine Ratio 25.4 H (10-20) Glucose 88 (70-99) mg/dl Calcium 8.5 (8.5-10.1) mg/dl Total Bilirubin 0.3 (0.2-1) mg/dl AST 28 (15-37) U/L ALT 49 (12-78) U/L Alkaline Phosphatase 86 (45-117) U/L Total Protein 6.3 L (6.4-8.2) gm/dl Albumin 2.9 L (3.4-5.0) gm/dl Globulin 3.4 (2.5-4.0) gm/dl Albumin/Globulin Ratio 0.9 (0.9-2) Blood Type O Positive Antibody Screen NEGATIVE Crossmatch See Detail 10/21/20 10/21/20 Range/Units 10:04 12:53 WBC 15.45 H (4.8-10.8) K/uL RBC 3.11 L (4.2-5.4) M/uL Hgb 9.7 L 9.1 L (12.0-16.0) g/dL Hct 29.3 L 27.1 L (37-47) % MCV 87.1 (80-100) fL MCH 29.3 (25-34) pg MCHC 33.6 (32-36) g/dL RDW Std Deviation 42.2 (36.4-46.3) fL RDW Coeff of Hui 13.1 (11.5-14.5) % Plt Count 199 (130-400) K/uL MPV 9.0 (7.4-10.4) fL Immature Gran % (Auto) 0.4 % Neut % (Auto) 85.6 % Lymph % (Auto) 6.9 % [place] % (Auto) 6.8 % Eos % (Auto) 0.2 % Baso % (Auto) 0.1 % Neut # (Auto) 13.23 H (1.4-6.5) K/uL Lymph # (Auto) 1.06 L (1.2-3.4) K/uL [place] # (Auto) 1.05 H (0.11-0.59) K/uL Eos # (Auto) 0.03 (0-0.5) K/uL Baso # (Auto) 0.02 (0-0.2) K/uL Immature Gran # (Auto) 0.06 H (0.00-0.02) K/uL Sodium (136-145) mmol/L Potassium (3.5-5.1) mmol/L Chloride (98-107) mmol/L Carbon Dioxide (21-32) mmol/L Anion Gap (3-11) BUN (7-18) mg/dl Creatinine (0.6-1.2) mg/dl Est Cr Clr Drug Dosing Est GFR ( Amer) ml/min Est GFR (Non-Af Amer) ml/min BUN/Creatinine Ratio (10-20) Glucose (70-99) mg/dl Calcium (8.5-10.1) mg/dl Total Bilirubin (0.2-1) mg/dl AST (15-37) U/L ALT (12-78) U/L Alkaline Phosphatase (45-117) U/L Total Protein (6.4-8.2) gm/dl Albumin (3.4-5.0) gm/dl Globulin (2.5-4.0) gm/dl Albumin/Globulin Ratio (0.9-2) Blood Type Antibody Screen Crossmatch Imaging Data Radiologist's Impression: Pelvis Ultrasound 10/21/20 09:56 US pelvic complete HISTORY: 30 years-old Female VB, 1 week post c sec acute vaginal bleeding with recent section COMPARISON: Pelvic ultrasound 10/13/2020 TECHNIQUE: Multiple real-time sonographic images of the deep pelvic structures were obtained transabdominally assessing grayscale appearance and color flow FINDINGS: Enlarged post gravid heterogeneous appearance of the uterus measures 17.2 x 13.3 x 10.7 cm. Thickened material within the endometrial canal measures up to 8.7 cm in thickness demonstrating no definite blood flow. The right ovary is not diagnostically visualized secondary to enlarged uterus and obscuring bowel gas. The left ovary measures 3.6 x 2.3 x 2.8 cm demonstrating arterial inflow. Trace free fluid adjacent to the right adnexum. IMPRESSION: 1. Enlarged heterogeneous post gravid appearance of the uterus. Complex material within the endometrial cavity measuring up to 8.7 cm transversely is suggestive of blood products. No definite retained products of conception. Follow-up recommended. 2. Unremarkable appearance of the left ovary. 3. Nonvisualization of the right ovary. ACT 112: Negative or not required by law. The above report was generated using voice recognition software. It may contain grammatical, syntax or spelling errors. Electronically signed by: Ruddy Damon M.D. 10/21/2020 11:10 AM Blood Pressure Blood Pressure Findings: Low blood pressure Blood Pressure Disposition: further management by hospitalist (OBGYN) MDM Narrative This pt was evaluated and appeared to be in no distress. IV access was obtained and lab work was drawn. An order for cardiac monitoring was placed and pt was noted to be in a NSR at 81 bpm. PT was hydrated with NSS. Initial hgb was stable, repeat revealed a significant drop. Abd exam reveals sore fundus that measures larger than expected. Pt likely has uterine atony and is now bleeding. US reveals findings c/w clot in uterus. Pt vagaled once more and OBGYN was consulted. PT was given IV oxytocin in LR as recommended by OBGYN Dr Stearns. She evaluated the pt in the ED for more definitive management. Impression & Plan hemorrhage, S/P section Discharge Plan Visit Data Chief Complaint: Vaginal Bleeding Stated Complaint: VAG BLEEDING, ED Provider: Anahi Hickey Discharge Problem: hemorrhage, S/P section Patient Disposition: Admitted As Inpatient Discharge Instructions Interventions: ED Discharge Assessment Last Done: 10/21/20 17:08 Discharge Problem: hemorrhage Qualifiers: hemorrhage type: delayed hemorrhage Qualified Code(s): O72.2 - Delayed and secondary hemorrhage
[2020-10-21 08:48] LABS: Alanine Aminotransferase 49 U/L (12-78); Albumin Level 2.9 gm/dl (3.4-5.0); Aspartate Aminotransferase 28 U/L (15-37); BUN Creatinine Ratio 25.4 (10-20); Blood Urea Nitrogen 16 mg/dl (7-18); Calcium 8.5 mg/dl (8.5-10.1); Carbon Dioxide 26 mmol/L (21-32); Chloride 108 mmol/L (98-107); Est GFR (African American) 140.2 ml/min; Glucose 88 mg/dl (70-99); Potassium 4.4 mmol/L (3.5-5.1); Sodium 138 mmol/L (136-145)
[2020-10-21 08:51] LABS: Albumin Globulin Ratio 0.9 (0.9-2); Alkaline Phosphatase 86 U/L (45-117); Bilirubin,Total 0.3 mg/dl (0.2-1); Globulin 3.4 gm/dl (2.5-4.0); Total Protein 6.3 gm/dl (6.4-8.2)
[2020-10-21] MEDS ORDERED: SODIUM CHLORIDE 0.9% 1000ML 1,000 ML IV ONE (09:56)
[2020-10-21] MEDS ORDERED: ONDANSETRON INJ 2 MG/ML 2 ML VIAL ONE (09:58)
[2020-10-21] MEDS ORDERED: ONDANSETRON INJ 2 MG/ML 2 ML VIAL IV STA (09:58)
[2020-10-21 10:15] LABS: Hematocrit (blood only) 29.3 % (37-47); Hemoglobin 9.7 g/dL (12.0-16.0)
--- NOTE | 2020-10-21 11:11 | Ultrasound Report ---
US pelvic complete HISTORY: 30 years-old Female VB, 1 week post c sec acute vaginal bleeding with recent secti on COMPARISON: Pelvic ultrasound 10/13/2020 TECHNIQUE: Multiple real-time sonographic images of the deep pelvic structures were obtained transabd ominally assessing grayscale appearance and color flow FINDINGS: Enlarged post gravid heterogeneous appearance of the uterus measures 17.2 x 13.3 x 10.7 cm. Thickened material within the endometrial canal measures up to 8.7 cm in thickness demonstrating no definite b lood flow. The right ovary is not diagnostically visualized secondary to enlarged uterus and obscuring bowel gas . The left ovary measures 3.6 x 2.3 x 2.8 cm demonstrating arterial inflow. Trace free fluid adjacent to the right adnexum. IMPRESSION: 1. Enlarged heterogeneous post gravid appearance of the uterus. Complex material within the endometri al cavity measuring up to 8.7 cm transversely is suggestive of blood products. No definite retained p roducts of conception. Follow-up recommended. 2. Unremarkable appearance of the left ovary. 3. Nonvisualization of the right ovary. ACT 112: Negative or not required by law. The above report was generated using voice recognition software. It may contain grammatical, syntax o r spelling errors. Electronically signed by: Ruddy Damon M.D. 10/21/2020 11:10 AM
[2020-10-21] MEDS ORDERED: OXYTOCIN 20 UNITS in LACTATED RINGER'S 1,000 ML IV SCH ×2 (11:30→21:00)
[2020-10-21] MEDS ORDERED: MoRPHine SULFATE 2 MG/ML CARP IV STA (11:44)
[2020-10-21] MEDS ORDERED: MoRPHine SULFATE 2 MG/ML CARP ONE (11:44)
[2020-10-21] MEDS ORDERED: SODIUM CHLORIDE 0.9% 250 ML IV PRN ×2 (11:45→22:48)
[2020-10-21] MEDS ORDERED: METHYLERGONOVINE MALEATE 0.2 MG/ML AMP IM STA (11:45)
[2020-10-21] MEDS ORDERED: miSOPROStoL 200 MCG TAB PR ONE (11:45)
[2020-10-21] MEDS ORDERED: OXYTOCIN 20 UNITS in LACTATED RINGER'S 1,000 ML IV STA (11:50)
--- NOTE | 2020-10-21 11:52 | History & Physical Report ---
Date of Service October 21, 2020 Assessment & Plan (1) Abnormal vaginal bleeding: (2) hemorrhage: 30 yo female s/p Primary Csection on 10/13, uncomplicated Started with heavy VB this morning VSS Afebrile H&H stable Tried to empty blood cloths from cervix but no active VB Plan to observe with IV Pitocin, Methergine series , Cytotec and reevaluate, repeat H&H All questions were answered (3) Bulky or enlarged uterus: History of Present Illness Primary Care Provider: NO PCP Patient is a 30 yo who is s/p Primary Csection on 10/13/2020 for breech presentation She was discharged on day with no problems Her bleeding had been minimal until this morning when she woke up with Heavy VB, passed large cloths and soaked through 3 large pads. She felt dizzy and light headed and came back right after Denies CP/SOB/ Abd pain/N&V/ fever/ chills Denies any medical problems Bottle feeding her baby. Allergies Allergy/AdvReac Type Severity Reaction Status Date / Time No Known Allergies Allergy Unverified 10/21/20 08:42 Home Medications Medication Instructions Recorded Confirmed Type Vitamin 1 tab PO PM 10/16/18 10/21/20 History Probiotic 10,000 mmu cells PO QPM 10/12/20 10/21/20 History oxycodone-acetaminophen [Percocet] 1 - 2 tab PO Q4H #20 tab 10/15/20 10/21/20 Rx ibuprofen 200 mg PO Q4H PRN 10/21/20 10/21/20 History Patient History Medical History Hx gestational diabetes with previous Surgical History History of tonsillectomy Nausea and vomiting after administration of anesthetic agent [place] teeth removed Family History Other No family history of adverse response to anesthesia Social History Smoking Status: Never smoker Second Hand Exposure: No; Hx Alcohol Use: No Hx Substance Use: No Preferred Language: Wolof Communication Ability: Effective Welder 2Nd Shift Required: No Beliefs That Will Affect Care: None marital status: Current Living Situation: Family Feels Safe at Home: Yes Assistive Devices: None OB History 1 1 Csection Review of Systems All systems reviewed & are unremarkable except as noted in HPI & below Physical Exam Constitutional: WD/WN, vitals as above + ill appearing and + lethargic pale, dizzy in BR Gastrointestinal (Abdomen): normal bowel sounds, soft, nontender, no hepatosplenomegaly (Incision C/D/I, uterus large, boggy at the Umbilicus) Genitourinary: normal external appearance SSE: about 15-20 ml of blood in vagina, no cloths, cervix visible, no active bleeding Uterus boggy about 18 wks size but NT Patient was given 2 mg of IV Morphine and after verbal consent was obtained a sterile ring forceps was introduced from cervix to empty the cloths which were seen on US There came small amount of blood, no cloths Patient was started on IV Oxytocin and IM Methergine and Rectal Cytotecs were placed. Results & Data ([facility]) Vital Signs (Past 12 Hours) Vital Signs Temp Pulse Resp BP Pulse Ox 10/21/20 10:04 71 13 103/58 L 98 10/21/20 10:00 67 15 92/55 L 98 10/21/20 09:59 70 17 89/57 L 98 10/21/20 09:55 60 16 75/45 L 99 10/21/20 09:52 51 L 15 75/37 L 99 10/21/20 07:56 37.0 C 81 18 132/95 100 Laboratory Results Lab Results 10/21/20 10/21/20 10/21/20 Range/Units 08:18 08:18 08:18 WBC 10.71 (4.8-10.8) K/uL RBC 4.07 L (4.2-5.4) M/uL Hgb 12.0 (12.0-16.0) g/dL Hct 36.2 L (37-47) % MCV 88.9 (80-100) fL MCH 29.5 (25-34) pg MCHC 33.1 (32-36) g/dL RDW Std Deviation 42.3 (36.4-46.3) fL RDW Coeff of Hui 13.0 (11.5-14.5) % Plt Count 252 (130-400) K/uL MPV 9.2 (7.4-10.4) fL Immature Gran % (Auto) 0.4 % Neut % (Auto) 79.1 % Lymph % (Auto) 12.1 % [place] % (Auto) 7.0 % Eos % (Auto) 1.1 % Baso % (Auto) 0.3 % Neut # (Auto) 8.47 H (1.4-6.5) K/uL Lymph # (Auto) 1.30 (1.2-3.4) K/uL [place] # (Auto) 0.75 H (0.11-0.59) K/uL Eos # (Auto) 0.12 (0-0.5) K/uL Baso # (Auto) 0.03 (0-0.2) K/uL Immature Gran # (Auto) 0.04 H (0.00-0.02) K/uL Sodium 138 (136-145) mmol/L Potassium 4.4 (3.5-5.1) mmol/L Chloride 108 H (98-107) mmol/L Carbon Dioxide 26 (21-32) mmol/L Anion Gap 4.0 (3-11) BUN 16 (7-18) mg/dl Creatinine 0.62 (0.6-1.2) mg/dl Est Cr Clr Drug Dosing Not Reportable Est GFR ( Amer) 140.2 ml/min Est GFR (Non-Af Amer) 121.0 ml/min BUN/Creatinine Ratio 25.4 H (10-20) Glucose 88 (70-99) mg/dl Calcium 8.5 (8.5-10.1) mg/dl Total Bilirubin 0.3 (0.2-1) mg/dl AST 28 (15-37) U/L ALT 49 (12-78) U/L Alkaline Phosphatase 86 (45-117) U/L Total Protein 6.3 L (6.4-8.2) gm/dl Albumin 2.9 L (3.4-5.0) gm/dl Globulin 3.4 (2.5-4.0) gm/dl Albumin/Globulin Ratio 0.9 (0.9-2) Blood Type O Positive Antibody Screen NEGATIVE Crossmatch See Detail 10/21/20 Range/Units 10:04 WBC (4.8-10.8) K/uL RBC (4.2-5.4) M/uL Hgb 9.7 L (12.0-16.0) g/dL Hct 29.3 L (37-47) % MCV (80-100) fL MCH (25-34) pg MCHC (32-36) g/dL RDW Std Deviation (36.4-46.3) fL RDW Coeff of Hui (11.5-14.5) % Plt Count (130-400) K/uL MPV (7.4-10.4) fL Immature Gran % (Auto) % Neut % (Auto) % Lymph % (Auto) % [place] % (Auto) % Eos % (Auto) % Baso % (Auto) % Neut # (Auto) (1.4-6.5) K/uL Lymph # (Auto) (1.2-3.4) K/uL [place] # (Auto) (0.11-0.59) K/uL Eos # (Auto) (0-0.5) K/uL Baso # (Auto) (0-0.2) K/uL Immature Gran # (Auto) (0.00-0.02) K/uL Sodium (136-145) mmol/L Potassium (3.5-5.1) mmol/L Chloride (98-107) mmol/L Carbon Dioxide (21-32) mmol/L Anion Gap (3-11) BUN (7-18) mg/dl Creatinine (0.6-1.2) mg/dl Est Cr Clr Drug Dosing Est GFR ( Amer) ml/min Est GFR (Non-Af Amer) ml/min BUN/Creatinine Ratio (10-20) Glucose (70-99) mg/dl Calcium (8.5-10.1) mg/dl Total Bilirubin (0.2-1) mg/dl AST (15-37) U/L ALT (12-78) U/L Alkaline Phosphatase (45-117) U/L Total Protein (6.4-8.2) gm/dl Albumin (3.4-5.0) gm/dl Globulin (2.5-4.0) gm/dl Albumin/Globulin Ratio (0.9-2) Blood Type Antibody Screen Crossmatch
[2020-10-21] MEDS ORDERED: ONDANSETRON INJ 2 MG/ML 2 ML VIAL IV PRN ×2 (12:14→23:41)
[2020-10-21] MEDS ORDERED: MoRPHine SULFATE 4 MG/ML 1 ML CARP\\VIAL IV PRN (12:14)
[2020-10-21] MEDS ORDERED: LACTATED RINGER'S 1,000 ML IV SCH (12:15)
[2020-10-21] MEDS ORDERED: CLINDAMYCIN 900 MG in DEXTROSE 5% 50 ML IV STA (12:17)
[2020-10-21 13:06] LABS: Basophils # (auto) 0.02 K/uL (0-0.2); Basophils % (auto) 0.1 %; Eosinophils # (auto) 0.03 K/uL (0-0.5); Eosinophils % (auto) 0.2 %; Hematocrit (blood only) 27.1 % (37-47); Hemoglobin 9.1 g/dL (12.0-16.0); Immature Granulocytes # (auto) 0.06 K/uL (0.00-0.02); Immature Granulocytes % (auto) 0.4 %; Lymphocytes # (auto) 1.06 K/uL (1.2-3.4); Lymphocytes % (auto) 6.9 %; Mean Corpuscular Hemoglobin 29.3 pg (25-34); Mean Corpuscular Hgb Conc 33.6 g/dL (32-36); Mean Corpuscular Volume 87.1 fL (80-100); Monocytes # (auto) 1.05 K/uL (0.11-0.59); Monocytes % (auto) 6.8 %; Neutrophils # (auto) 13.23 K/uL (1.4-6.5); Neutrophils % (auto) 85.6 %; Platelet Count 199 K/uL (130-400); RDW Coefficient of Variation 13.1 % (11.5-14.5); RDW Standard Deviation 42.2 fL (36.4-46.3); Red Blood Count 3.11 M/uL (4.2-5.4); White Blood Count 15.45 K/uL (4.8-10.8)
[2020-10-21] MEDS: FERROUS SULFATE 325 MG TAB PO SCH ×2 (14:16→18:09)
[2020-10-21] MEDS: METHYLERGONOVINE MALEATE 0.2 MG TAB PO SCH ×2 (16:39→20:37)
[2020-10-21] MEDS ORDERED: ACETAMINOPHEN 325 MG TAB PO PRN (17:31)
[2020-10-21] MEDS ORDERED: ACETAMINOPHEN 325 MG TAB ONE (17:36)
--- NOTE | 2020-10-21 17:58 | Obstetrical Progress Note ---
Date of Service October 21, 2020 Assessment & Plan Admission and Anticipated Discharge Date Admission Date: October 21, 2020 Subjective She has just came from ER to [facility] floor. She states she feels better, he still feels bleeding but not sure how much. She has been in bed due to being dizzy in the bathroom. Mild cramping, no major pain. Vital signs stable, normal blood pressure and pulse but temperature is 38.2. Repeat H&H is pending, Abdomen, soft nontender, large bulky uterus about 20-week size. Bleeding is scant dark blood Continue to monitor closely and await H&H results. Discussed possible need for going to order to empty blood clots from uterus N.p.o. except sips and chips of ice. Results & Data ([facility]) Vital Signs (Past 12 Hours) Vital Signs Temp Pulse Resp BP Pulse Ox 10/21/20 17:00 91 H 18 10/21/20 16:50 91 H 19 10/21/20 16:40 105 H 17 10/21/20 16:31 100 H 17 10/21/20 16:30 98 H 18 128/77 10/21/20 16:20 95 H 16 10/21/20 16:15 97 H 16 110/77 10/21/20 16:10 89 15 10/21/20 16:01 91 H 16 10/21/20 16:00 89 15 111/73 10/21/20 15:50 88 16 10/21/20 15:45 92 H 15 107/66 10/21/20 15:40 105 H 16 10/21/20 15:31 86 15 10/21/20 15:30 85 15 115/73 10/21/20 15:20 86 15 10/21/20 15:15 86 15 113/65 10/21/20 15:10 86 15 10/21/20 15:01 82 17 10/21/20 15:00 101 H 15 99/66 L 10/21/20 14:45 81 16 109/68 95 10/21/20 14:30 84 16 114/72 96 10/21/20 14:15 83 15 105/64 95 10/21/20 14:00 76 19 104/72 10/21/20 13:30 72 14 107/65 99 10/21/20 13:15 73 15 99/63 L 99 10/21/20 13:00 68 18 101/60 100 10/21/20 12:45 78 15 97/57 L 100 10/21/20 12:30 70 15 111/59 L 100 10/21/20 12:15 69 18 108/60 99 10/21/20 12:00 102 H 21 114/79 100 10/21/20 11:45 72 15 96/59 L 100 10/21/20 11:40 74 19 95/58 L 99 10/21/20 11:30 82 16 102/60 10/21/20 11:15 78 16 99/63 L 98 10/21/20 10:04 71 13 103/58 L 98 10/21/20 10:00 67 15 92/55 L 98 10/21/20 09:59 70 17 89/57 L 98 10/21/20 09:55 60 16 75/45 L 99 10/21/20 09:52 51 L 15 75/37 L 99 10/21/20 07:56 37.0 C 81 18 132/95 100
[2020-10-21 18:23] LABS: Hematocrit (blood only) 25.1 % (37-47); Hemoglobin 8.3 g/dL (12.0-16.0)
[2020-10-21] MEDS: CLINDAMYCIN 900 MG in DEXTROSE 5% 50 ML IV SCH (20:37)
--- NOTE | 2020-10-21 21:15 | Obstetrical Progress Note ---
Date of Service October 21, 2020 Assessment & Plan Admission and Anticipated Discharge Date Admission Date: October 21, 2020 Subjective Patient is reevaluated She feels better She has been up to BR with no dizziness nor light headedness Bleeding has been minimal on pads and as well in BR No cloths. VSS Afebrile Bed side US: Cloth in uterus is same size 7/x8 cm VB scant Uterus firm 2 finger below U, NT Lab Results 10/21/20 10/21/20 10/21/20 Range/Units 08:18 08:18 08:18 WBC 10.71 (4.8-10.8) K/uL RBC 4.07 L (4.2-5.4) M/uL Hgb 12.0 (12.0-16.0) g/dL Hct 36.2 L (37-47) % MCV 88.9 (80-100) fL MCH 29.5 (25-34) pg MCHC 33.1 (32-36) g/dL RDW Std Deviation 42.3 (36.4-46.3) fL RDW Coeff of Hui 13.0 (11.5-14.5) % Plt Count 252 (130-400) K/uL MPV 9.2 (7.4-10.4) fL Immature Gran % (Auto) 0.4 % Neut % (Auto) 79.1 % Lymph % (Auto) 12.1 % [place] % (Auto) 7.0 % Eos % (Auto) 1.1 % Baso % (Auto) 0.3 % Neut # (Auto) 8.47 H (1.4-6.5) K/uL Lymph # (Auto) 1.30 (1.2-3.4) K/uL [place] # (Auto) 0.75 H (0.11-0.59) K/uL Eos # (Auto) 0.12 (0-0.5) K/uL Baso # (Auto) 0.03 (0-0.2) K/uL Immature Gran # (Auto) 0.04 H (0.00-0.02) K/uL Sodium 138 (136-145) mmol/L Potassium 4.4 (3.5-5.1) mmol/L Chloride 108 H (98-107) mmol/L Carbon Dioxide 26 (21-32) mmol/L Anion Gap 4.0 (3-11) BUN 16 (7-18) mg/dl Creatinine 0.62 (0.6-1.2) mg/dl Est Cr Clr Drug Dosing Not Reportable Est GFR ( Amer) 140.2 ml/min Est GFR (Non-Af Amer) 121.0 ml/min BUN/Creatinine Ratio 25.4 H (10-20) Glucose 88 (70-99) mg/dl Calcium 8.5 (8.5-10.1) mg/dl Total Bilirubin 0.3 (0.2-1) mg/dl AST 28 (15-37) U/L ALT 49 (12-78) U/L Alkaline Phosphatase 86 (45-117) U/L Total Protein 6.3 L (6.4-8.2) gm/dl Albumin 2.9 L (3.4-5.0) gm/dl Globulin 3.4 (2.5-4.0) gm/dl Albumin/Globulin Ratio 0.9 (0.9-2) COVID-19 Eval Order SARS-CoV-2, RNA, NAAT (NEGATIVE) Blood Type O Positive Antibody Screen NEGATIVE Crossmatch See Detail 10/21/20 10/21/20 10/21/20 Range/Units 10:04 12:53 14:20 WBC 15.45 H (4.8-10.8) K/uL RBC 3.11 L (4.2-5.4) M/uL Hgb 9.7 L 9.1 L (12.0-16.0) g/dL Hct 29.3 L 27.1 L (37-47) % MCV 87.1 (80-100) fL MCH 29.3 (25-34) pg MCHC 33.6 (32-36) g/dL RDW Std Deviation 42.2 (36.4-46.3) fL RDW Coeff of Hui 13.1 (11.5-14.5) % Plt Count 199 (130-400) K/uL MPV 9.0 (7.4-10.4) fL Immature Gran % (Auto) 0.4 % Neut % (Auto) 85.6 % Lymph % (Auto) 6.9 % [place] % (Auto) 6.8 % Eos % (Auto) 0.2 % Baso % (Auto) 0.1 % Neut # (Auto) 13.23 H (1.4-6.5) K/uL Lymph # (Auto) 1.06 L (1.2-3.4) K/uL [place] # (Auto) 1.05 H (0.11-0.59) K/uL Eos # (Auto) 0.03 (0-0.5) K/uL Baso # (Auto) 0.02 (0-0.2) K/uL Immature Gran # (Auto) 0.06 H (0.00-0.02) K/uL Sodium (136-145) mmol/L Potassium (3.5-5.1) mmol/L Chloride (98-107) mmol/L Carbon Dioxide (21-32) mmol/L Anion Gap (3-11) BUN (7-18) mg/dl Creatinine (0.6-1.2) mg/dl Est Cr Clr Drug Dosing Est GFR ( Amer) ml/min Est GFR (Non-Af Amer) ml/min BUN/Creatinine Ratio (10-20) Glucose (70-99) mg/dl Calcium (8.5-10.1) mg/dl Total Bilirubin (0.2-1) mg/dl AST (15-37) U/L ALT (12-78) U/L Alkaline Phosphatase (45-117) U/L Total Protein (6.4-8.2) gm/dl Albumin (3.4-5.0) gm/dl Globulin (2.5-4.0) gm/dl Albumin/Globulin Ratio (0.9-2) COVID-19 Eval Order Covid19 [facility] SARS-CoV-2, RNA, NAAT (NEGATIVE) Blood Type Antibody Screen Crossmatch 10/21/20 10/21/20 Range/Units 14:20 18:13 WBC (4.8-10.8) K/uL RBC (4.2-5.4) M/uL Hgb 8.3 L (12.0-16.0) g/dL Hct 25.1 L (37-47) % MCV (80-100) fL MCH (25-34) pg MCHC (32-36) g/dL RDW Std Deviation (36.4-46.3) fL RDW Coeff of Hui (11.5-14.5) % Plt Count (130-400) K/uL MPV (7.4-10.4) fL Immature Gran % (Auto) % Neut % (Auto) % Lymph % (Auto) % [place] % (Auto) % Eos % (Auto) % Baso % (Auto) % Neut # (Auto) (1.4-6.5) K/uL Lymph # (Auto) (1.2-3.4) K/uL [place] # (Auto) (0.11-0.59) K/uL Eos # (Auto) (0-0.5) K/uL Baso # (Auto) (0-0.2) K/uL Immature Gran # (Auto) (0.00-0.02) K/uL Sodium (136-145) mmol/L Potassium (3.5-5.1) mmol/L Chloride (98-107) mmol/L Carbon Dioxide (21-32) mmol/L Anion Gap (3-11) BUN (7-18) mg/dl Creatinine (0.6-1.2) mg/dl Est Cr Clr Drug Dosing Est GFR ( Amer) ml/min Est GFR (Non-Af Amer) ml/min BUN/Creatinine Ratio (10-20) Glucose (70-99) mg/dl Calcium (8.5-10.1) mg/dl Total Bilirubin (0.2-1) mg/dl AST (15-37) U/L ALT (12-78) U/L Alkaline Phosphatase (45-117) U/L Total Protein (6.4-8.2) gm/dl Albumin (3.4-5.0) gm/dl Globulin (2.5-4.0) gm/dl Albumin/Globulin Ratio (0.9-2) COVID-19 Eval Order SARS-CoV-2, RNA, NAAT NEGATIVE (NEGATIVE) Blood Type Antibody Screen Crossmatch Drop in H&H most likely reflecting the blood loss which happened earlier today Responding to medical therapy, blood cloth tamponading the uterus wall which is also firmer. Would hold on surgery for now Gonzalez catheter is in draining clear urine Continue with IV Oxytocin Continue to monitor closely Results & Data ([facility]) Vital Signs (Past 12 Hours) Vital Signs Temp Pulse Pulse Resp BP BP Pulse Ox 10/21/20 20:30 37.0 C 93 H 18 109/73 10/21/20 19:26 37.6 C H 85 16 107/72 95 10/21/20 18:20 37.7 C H 10/21/20 17:15 38.3 C H 92 H 18 113/75 99 10/21/20 17:00 91 H 18 10/21/20 16:50 91 H 19 10/21/20 16:40 105 H 17 10/21/20 16:31 100 H 17 10/21/20 16:30 98 H 18 128/77 10/21/20 16:20 95 H 16 10/21/20 16:15 97 H 16 110/77 10/21/20 16:10 89 15 10/21/20 16:01 91 H 16 10/21/20 16:00 89 15 111/73 10/21/20 15:50 88 16 10/21/20 15:45 92 H 15 107/66 10/21/20 15:40 105 H 16 10/21/20 15:31 86 15 10/21/20 15:30 85 15 115/73 10/21/20 15:20 86 15 10/21/20 15:15 86 15 113/65 10/21/20 15:10 86 15 10/21/20 15:01 82 17 10/21/20 15:00 101 H 15 99/66 L 10/21/20 14:45 81 16 109/68 95 10/21/20 14:30 84 16 114/72 96 10/21/20 14:15 83 15 105/64 95 10/21/20 14:00 76 19 104/72 10/21/20 13:30 72 14 107/65 99 10/21/20 13:15 73 15 99/63 L 99 10/21/20 13:00 68 18 101/60 100 10/21/20 12:45 78 15 97/57 L 100 10/21/20 12:30 70 15 111/59 L 100 10/21/20 12:15 69 18 108/60 99 10/21/20 12:00 102 H 21 114/79 100 10/21/20 11:45 72 15 96/59 L 100 10/21/20 11:40 74 19 95/58 L 99 10/21/20 11:30 82 16 102/60 10/21/20 11:15 78 16 99/63 L 98 10/21/20 10:04 71 13 103/58 L 98 10/21/20 10:00 67 15 92/55 L 98 10/21/20 09:59 70 17 89/57 L 98 10/21/20 09:55 60 16 75/45 L 99 10/21/20 09:52 51 L 15 75/37 L 99
[2020-10-21 21:24] LABS: Hematocrit (blood only) 23.1 % (37-47); Hemoglobin 7.9 g/dL (12.0-16.0); Mean Corpuscular Hemoglobin 29.6 pg (25-34); Mean Corpuscular Hgb Conc 34.2 g/dL (32-36); Mean Corpuscular Volume 86.5 fL (80-100); Mean Platelet Volume 8.9 fL (7.4-10.4); Platelet Count 171 K/uL (130-400); RDW Coefficient of Variation 13.1 % (11.5-14.5); RDW Standard Deviation 41.7 fL (36.4-46.3); Red Blood Count 2.67 M/uL (4.2-5.4); White Blood Count 7.96 K/uL (4.8-10.8)
[2020-10-21 22:03] LABS: Basophils # (auto) 0.02 K/uL (0-0.2); Basophils % (auto) 0.3 %; Eosinophils # (auto) 0.03 K/uL (0-0.5); Eosinophils % (auto) 0.4 %; Immature Granulocytes # (auto) 0.04 K/uL (0.00-0.02); Immature Granulocytes % (auto) 0.5 %; Lymphocytes # (auto) 1.62 K/uL (1.2-3.4); Lymphocytes % (auto) 20.4 %; Monocytes # (auto) 0.65 K/uL (0.11-0.59); Monocytes % (auto) 8.2 %; Neutrophils % (auto) 70.2 %; RBC Morphology Unremarkable
[2020-10-21 22:46] LABS: Fibrinogen 164 mg/dl (184-400); INR 1.1 (0.9-1.1); Partial Thromboplastin Time 27.2 Seconds (21.0-31.0); Prothrombin Time 10.9 Seconds (9.0-12.0)
[2020-10-21] MEDS ORDERED: diphenhydrAMINE Capsule 25 MG CAP PO ONE (22:49)
[2020-10-21] MEDS ORDERED: ceFAZolin 2000MG 2,000 MG/15 ML SYR IV SCH (23:00)
--- NOTE | 2020-10-21 23:23 | Obstetrical Progress Note ---
Date of Service October 21, 2020 Assessment & Plan Admission and Anticipated Discharge Date Admission Date: October 21, 2020 Subjective Patient is reevaluated. She was sleeping but woke up with cramping in lower abdomen. It has been painful. She has not been out of bed and has Gonzalez catheter draining. H&H has been dropping and fibrinogen is slightly lower than normal. Abd: soft, Uterus is larger 20 wks size at the U and boggy Lab Results 10/21/20 10/21/20 10/21/20 Range/Units 08:18 08:18 08:18 WBC 10.71 (4.8-10.8) K/uL RBC 4.07 L (4.2-5.4) M/uL Hgb 12.0 (12.0-16.0) g/dL Hct 36.2 L (37-47) % MCV 88.9 (80-100) fL MCH 29.5 (25-34) pg MCHC 33.1 (32-36) g/dL RDW Std Deviation 42.3 (36.4-46.3) fL RDW Coeff of Hui 13.0 (11.5-14.5) % Plt Count 252 (130-400) K/uL MPV 9.2 (7.4-10.4) fL Immature Gran % (Auto) 0.4 % Neut % (Auto) 79.1 % Lymph % (Auto) 12.1 % [place] % (Auto) 7.0 % Eos % (Auto) 1.1 % Baso % (Auto) 0.3 % Neut # (Auto) 8.47 H (1.4-6.5) K/uL Lymph # (Auto) 1.30 (1.2-3.4) K/uL [place] # (Auto) 0.75 H (0.11-0.59) K/uL Eos # (Auto) 0.12 (0-0.5) K/uL Baso # (Auto) 0.03 (0-0.2) K/uL Immature Gran # (Auto) 0.04 H (0.00-0.02) K/uL RBC Morphology PT (9.0-12.0) Seconds INR (0.9-1.1) APTT (21.0-31.0) Seconds PTT Ratio Fibrinogen (184-400) mg/dl Sodium 138 (136-145) mmol/L Potassium 4.4 (3.5-5.1) mmol/L Chloride 108 H (98-107) mmol/L Carbon Dioxide 26 (21-32) mmol/L Anion Gap 4.0 (3-11) BUN 16 (7-18) mg/dl Creatinine 0.62 (0.6-1.2) mg/dl Est Cr Clr Drug Dosing Not Reportable Est GFR ( Amer) 140.2 ml/min Est GFR (Non-Af Amer) 121.0 ml/min BUN/Creatinine Ratio 25.4 H (10-20) Glucose 88 (70-99) mg/dl Calcium 8.5 (8.5-10.1) mg/dl Total Bilirubin 0.3 (0.2-1) mg/dl AST 28 (15-37) U/L ALT 49 (12-78) U/L Alkaline Phosphatase 86 (45-117) U/L Total Protein 6.3 L (6.4-8.2) gm/dl Albumin 2.9 L (3.4-5.0) gm/dl Globulin 3.4 (2.5-4.0) gm/dl Albumin/Globulin Ratio 0.9 (0.9-2) COVID-19 Eval Order SARS-CoV-2, RNA, NAAT (NEGATIVE) Blood Type O Positive Antibody Screen NEGATIVE Crossmatch See Detail 10/21/20 10/21/20 10/21/20 Range/Units 10:04 12:53 14:20 WBC 15.45 H (4.8-10.8) K/uL RBC 3.11 L (4.2-5.4) M/uL Hgb 9.7 L 9.1 L (12.0-16.0) g/dL Hct 29.3 L 27.1 L (37-47) % MCV 87.1 (80-100) fL MCH 29.3 (25-34) pg MCHC 33.6 (32-36) g/dL RDW Std Deviation 42.2 (36.4-46.3) fL RDW Coeff of Hui 13.1 (11.5-14.5) % Plt Count 199 (130-400) K/uL MPV 9.0 (7.4-10.4) fL Immature Gran % (Auto) 0.4 % Neut % (Auto) 85.6 % Lymph % (Auto) 6.9 % [place] % (Auto) 6.8 % Eos % (Auto) 0.2 % Baso % (Auto) 0.1 % Neut # (Auto) 13.23 H (1.4-6.5) K/uL Lymph # (Auto) 1.06 L (1.2-3.4) K/uL [place] # (Auto) 1.05 H (0.11-0.59) K/uL Eos # (Auto) 0.03 (0-0.5) K/uL Baso # (Auto) 0.02 (0-0.2) K/uL Immature Gran # (Auto) 0.06 H (0.00-0.02) K/uL RBC Morphology PT (9.0-12.0) Seconds INR (0.9-1.1) APTT (21.0-31.0) Seconds PTT Ratio Fibrinogen (184-400) mg/dl Sodium (136-145) mmol/L Potassium (3.5-5.1) mmol/L Chloride (98-107) mmol/L Carbon Dioxide (21-32) mmol/L Anion Gap (3-11) BUN (7-18) mg/dl Creatinine (0.6-1.2) mg/dl Est Cr Clr Drug Dosing Est GFR ( Amer) ml/min Est GFR (Non-Af Amer) ml/min BUN/Creatinine Ratio (10-20) Glucose (70-99) mg/dl Calcium (8.5-10.1) mg/dl Total Bilirubin (0.2-1) mg/dl AST (15-37) U/L ALT (12-78) U/L Alkaline Phosphatase (45-117) U/L Total Protein (6.4-8.2) gm/dl Albumin (3.4-5.0) gm/dl Globulin (2.5-4.0) gm/dl Albumin/Globulin Ratio (0.9-2) COVID-19 Eval Order Covid19 [facility]Now [facility] SARS-CoV-2, RNA, NAAT (NEGATIVE) Blood Type Antibody Screen Crossmatch 10/21/20 10/21/20 10/21/20 Range/Units 14:20 18:13 21:09 WBC 7.96 (4.8-10.8) K/uL RBC 2.67 L (4.2-5.4) M/uL Hgb 8.3 L 7.9 L (12.0-16.0) g/dL Hct 25.1 L 23.1 L (37-47) % MCV 86.5 (80-100) fL MCH 29.6 (25-34) pg MCHC 34.2 (32-36) g/dL RDW Std Deviation 41.7 (36.4-46.3) fL RDW Coeff of Hui 13.1 (11.5-14.5) % Plt Count 171 (130-400) K/uL MPV 8.9 (7.4-10.4) fL Immature Gran % (Auto) 0.5 % Neut % (Auto) 70.2 % Lymph % (Auto) 20.4 % [place] % (Auto) 8.2 % Eos % (Auto) 0.4 % Baso % (Auto) 0.3 % Neut # (Auto) 5.60 (1.4-6.5) K/uL Lymph # (Auto) 1.62 (1.2-3.4) K/uL [place] # (Auto) 0.65 H (0.11-0.59) K/uL Eos # (Auto) 0.03 (0-0.5) K/uL Baso # (Auto) 0.02 (0-0.2) K/uL Immature Gran # (Auto) 0.04 H (0.00-0.02) K/uL RBC Morphology Unremarkable PT (9.0-12.0) Seconds INR (0.9-1.1) APTT (21.0-31.0) Seconds PTT Ratio Fibrinogen (184-400) mg/dl Sodium (136-145) mmol/L Potassium (3.5-5.1) mmol/L Chloride (98-107) mmol/L Carbon Dioxide (21-32) mmol/L Anion Gap (3-11) BUN (7-18) mg/dl Creatinine (0.6-1.2) mg/dl Est Cr Clr Drug Dosing Est GFR ( Amer) ml/min Est GFR (Non-Af Amer) ml/min BUN/Creatinine Ratio (10-20) Glucose (70-99) mg/dl Calcium (8.5-10.1) mg/dl Total Bilirubin (0.2-1) mg/dl AST (15-37) U/L ALT (12-78) U/L Alkaline Phosphatase (45-117) U/L Total Protein (6.4-8.2) gm/dl Albumin (3.4-5.0) gm/dl Globulin (2.5-4.0) gm/dl Albumin/Globulin Ratio (0.9-2) COVID-19 Eval Order SARS-CoV-2, RNA, NAAT NEGATIVE (NEGATIVE) Blood Type Antibody Screen Crossmatch 10/21/20 Range/Units 21:09 WBC (4.8-10.8) K/uL RBC (4.2-5.4) M/uL Hgb (12.0-16.0) g/dL Hct (37-47) % MCV (80-100) fL MCH (25-34) pg MCHC (32-36) g/dL RDW Std Deviation (36.4-46.3) fL RDW Coeff of Hui (11.5-14.5) % Plt Count (130-400) K/uL MPV (7.4-10.4) fL Immature Gran % (Auto) % Neut % (Auto) % Lymph % (Auto) % [place] % (Auto) % Eos % (Auto) % Baso % (Auto) % Neut # (Auto) (1.4-6.5) K/uL Lymph # (Auto) (1.2-3.4) K/uL [place] # (Auto) (0.11-0.59) K/uL Eos # (Auto) (0-0.5) K/uL Baso # (Auto) (0-0.2) K/uL Immature Gran # (Auto) (0.00-0.02) K/uL RBC Morphology PT 10.9 (9.0-12.0) Seconds INR 1.1 (0.9-1.1) APTT 27.2 (21.0-31.0) Seconds PTT Ratio 1.0 Fibrinogen 164 L (184-400) mg/dl Sodium (136-145) mmol/L Potassium (3.5-5.1) mmol/L Chloride (98-107) mmol/L Carbon Dioxide (21-32) mmol/L Anion Gap (3-11) BUN (7-18) mg/dl Creatinine (0.6-1.2) mg/dl Est Cr Clr Drug Dosing Est GFR ( Amer) ml/min Est GFR (Non-Af Amer) ml/min BUN/Creatinine Ratio (10-20) Glucose (70-99) mg/dl Calcium (8.5-10.1) mg/dl Total Bilirubin (0.2-1) mg/dl AST (15-37) U/L ALT (12-78) U/L Alkaline Phosphatase (45-117) U/L Total Protein (6.4-8.2) gm/dl Albumin (3.4-5.0) gm/dl Globulin (2.5-4.0) gm/dl Albumin/Globulin Ratio (0.9-2) COVID-19 Eval Order SARS-CoV-2, RNA, NAAT (NEGATIVE) Blood Type Antibody Screen Crossmatch AP: 30-year-old -0-0-2 status post primary on October 13, 2020, presented with hemorrhage, Found to have blood clots in uterus, unable to empty them in ER Vital signs stable but H&H has been dropping with boggy and enlarged uterus. Discussed with the patient and recommended blood transfusion and empty clots with suction and possible D&C under ultrasound guidance in the OR and use uterotonics to contract the uterus further. Patient understands risks and benef its and she signed an informed consent. All questions were answered. Results & Data ([facility]) Vital Signs (Past 12 Hours) Vital Signs Temp Pulse Pulse Resp BP BP Pulse Ox 10/21/20 21:31 37.2 C 86 16 108/74 97 10/21/20 20:30 37.0 C 93 H 18 109/73 10/21/20 19:26 37.6 C H 85 16 107/72 95 10/21/20 18:20 37.7 C H 10/21/20 17:15 38.3 C H 92 H 18 113/75 99 10/21/20 17:00 91 H 18 10/21/20 16:50 91 H 19 10/21/20 16:40 105 H 17 10/21/20 16:31 100 H 17 10/21/20 16:30 98 H 18 128/77 10/21/20 16:20 95 H 16 10/21/20 16:15 97 H 16 110/77 10/21/20 16:10 89 15 10/21/20 16:01 91 H 16 10/21/20 16:00 89 15 111/73 10/21/20 15:50 88 16 10/21/20 15:45 92 H 15 107/66 10/21/20 15:40 105 H 16 10/21/20 15:31 86 15 10/21/20 15:30 85 15 115/73 10/21/20 15:20 86 15 10/21/20 15:15 86 15 113/65 10/21/20 15:10 86 15 10/21/20 15:01 82 17 10/21/20 15:00 101 H 15 99/66 L 10/21/20 14:45 81 16 109/68 95 10/21/20 14:30 84 16 114/72 96 10/21/20 14:15 83 15 105/64 95 10/21/20 14:00 76 19 104/72 10/21/20 13:30 72 14 107/65 99 10/21/20 13:15 73 15 99/63 L 99 10/21/20 13:00 68 18 101/60 100 10/21/20 12:45 78 15 97/57 L 100 10/21/20 12:30 70 15 111/59 L 100 10/21/20 12:15 69 18 108/60 99 10/21/20 12:00 102 H 21 114/79 100 10/21/20 11:45 72 15 96/59 L 100 10/21/20 11:40 74 19 95/58 L 99 10/21/20 11:30 82 16 102/60
[2020-10-21] MEDS ORDERED: fentaNYL citrate 100 MCG/2 ML VIAL ONE (23:25)
[2020-10-21] MEDS ORDERED: MIDAZOLAM HCL 1 MG/ML 2ML VIAL ONE (23:25)
[2020-10-21] MEDS ORDERED: PROMETHAZINE HCL 6.25 MG in SODIUM CHLORIDE 0.9% 50 ML IV PRN (23:41)
[2020-10-21] MEDS ORDERED: fentaNYL citrate 100 MCG/2 ML VIAL IV PRN (23:41)
[2020-10-21] MEDS ORDERED: ATROPINE SULFATE 0.1 MG/ML 10ML SYR IV PRN (23:41)
--- NOTE | 2020-10-21 23:41 | Anesthesiology Consultation ---
Date of Service October 21, 2020 Assessment & Plan (1) Encounter for pre-operative examination: Chart Review Chart Review: Acceptable Risk for Surgery History Height/Weight Height: 5 ft 3 in Weight: 70.91 kg Allergies Allergy/AdvReac Type Severity Reaction Status Date / Time No Known Allergies Allergy Unverified 10/21/20 08:42 Medications Home Medications Medication Instructions Recorded Confirmed Last Taken Vitamin 1 tab PO PM 10/16/18 10/21/20 10/20/20 Probiotic 10,000 mmu cells PO QPM 10/12/20 10/21/20 10/20/20 oxycodone-acetaminophen [Percocet] 1 - 2 tab PO Q4H #20 tab 10/15/20 10/21/20 Unknown ibuprofen 200 mg PO Q4H PRN 10/21/20 10/21/20 10/21/20 00:23 200 mg Active Medications Generic Name Dose Route Start Last Admin Trade Name Freq PRN Reason Stop Dose Admin Acetaminophen 650 mg 10/21/20 17:31 10/21/20 21:51 Acetaminophen 325 Mg Tab PO 11/20/20 17:30 650 mg Q4 PRN Administration pain Ferrous Sulfate 325 mg 10/21/20 12:25 10/21/20 18:09 Ferrous Sulfate 325 Mg Tab PO 11/20/20 12:24 Not Given BIDM LUBNA Lactated Ringer's 1,000 mls @ 125 mls/hr 10/21/20 12:15 10/21/20 13:50 Lr IV 11/20/20 12:14 125 mls/hr .Q8H LUBNA Administration Clindamycin Phosphate 900 mg/ 56 mls @ 112 mls/hr 10/21/20 21:00 10/21/20 21:52 Dextrose IV 10/31/20 20:59 Infused Q8H LUBNA Infusion Oxytocin 20 units/ Lactated 1,002 mls @ 125 mls/hr 10/21/20 21:00 10/21/20 21:51 Ringer's IV 11/20/20 20:59 125 mls/hr .Q8H1M LUBNA Administration Cefazolin Sodium 2,000 mg in 15 mls @ 3.75 mls/min 10/21/20 23:00 10/21/20 23:20 Ancef 2000mg IV 10/31/20 22:59 3.75 mls/min Q8H LUBNA Administration Methylergonovine Maleate 0.2 mg 10/21/20 16:00 10/21/20 20:37 Methylergonovine Maleate 0.2 Mg Tab PO 11/20/20 15:59 0.2 mg Q4 LUBNA Administration Ondansetron HCl 4 mg 10/21/20 12:14 10/21/20 17:39 Ondansetron Inj 2 Mg/Ml 2 Ml Vial IV 11/20/20 12:13 4 mg Q6H PRN Administration Nausea And Vomiting Past Medical History Medical History (Updated 10/21/20 @ 23:40 by Austen Robert MD) Anemia Hx gestational diabetes with previous Past Family History Family History Other No family history of adverse response to anesthesia Past Surgical History Surgical History History of tonsillectomy Nausea and vomiting after administration of anesthetic agent [place] teeth removed Social History Smoking Status: Never smoker Do You Dip or Chew Tobacco: No Hx Alcohol Use: No Hx Substance Use: No substance use type: does not use Physical Exam Vital Signs Last Vital Signs Temp 37 C 10/21/20 23:18 Pulse 79 10/21/20 23:18 Resp 16 10/21/20 23:18 BP 119/80 10/21/20 23:18 Pulse Ox 98 10/21/20 23:18 Testing Laboratory Results 10/21/20 21:09 10/21/20 08:18 PT 10.9 Seconds (9.0-12.0) 10/21/20 21:09 INR 1.1 (0.9-1.1) 10/21/20 21:09 APTT 27.2 Seconds (21.0-31.0) 10/21/20 21:09 Blood Type O Positive 10/21/20 08:18 Antibody Screen NEGATIVE 10/21/20 08:18
[2020-10-21] MEDS ORDERED: CARBOPROST TROMETHAMINE 250 MCG/ML AMPUL ONE (23:48)
[2020-10-21] MEDS ORDERED: ePHEDrine sulfate 50 MG/ML SYR ONE (23:50)
[2020-10-21] MEDS ORDERED: METHYLERGONOVINE MALEATE 0.2 MG/ML AMP ONE (23:57)
[2020-10-21] MEDS ORDERED: miSOPROStoL 100 MCG TAB ONE (23:58)
[2020-10-22] MEDS ORDERED: SCOPOLAMINE 1 MG TDSY TD ONE (00:28)
--- NOTE | 2020-10-22 01:12 | Post Operative Brief Note ---
Immediate Post Op Note v1 Date of Surgery October 22, 2020 Pre & Post Diagnosis Operation Date: 10/22/20 00:30 Pre-Op Diagnosis: Blood clots in uterus. Post-Op Diagnosis: Blood clots in uterus. I identified the patient and participated in the time-out.: Yes Procedure Operation Date: 10/22/20 00:30 Actual Procedures p Dilation and Curettage with suction and ultrasound. - Alvaro Wei MD Surgeon Alvaro Wei MD [employer] DILSHAD Christy Estimated Blood Loss 400 Findings Consistent with Post-Op Diagnosis Drains Gonzalez Catheter Anesthesia Type General Complications none Disposition Accompanied Patient To Recovery: Yes Disposition: Recovery Room
[2020-10-22] MEDS ORDERED: MoRPHine SULFATE 2 MG/ML CARP IV PRN (01:13)
[2020-10-22] MEDS ORDERED: IBUPROFEN 600 MG TAB PO PRN (01:13)
[2020-10-22] MEDS ORDERED: oxyCODONE/ACETAMINOPHEN 5mg/325mg TAB PO PRN ×2 (01:13)
[2020-10-22] MEDS ORDERED: MoRPHine SULFATE 4 MG/ML 1 ML CARP\\VIAL IV PRN (01:13)
[2020-10-22] MEDS ORDERED: ONDANSETRON INJ 2 MG/ML 2 ML VIAL ONE (01:34)
[2020-10-22] MEDS ORDERED: PROPOFOL IV EMULSION 10 MG/ML 20 ML VIAL IV ONE (01:34)
[2020-10-22] MEDS ORDERED: METOCLOPRAMIDE HCL INJ 5 MG/ML 2 ML VIAL ONE (01:34)
[2020-10-22] MEDS ORDERED: LIDOCAINE 2% 2 ML VIAL/AMP(20MG/ML) INFIL ONE (01:34)
[2020-10-22] MEDS ORDERED: METHYLERGONOVINE MALEATE 0.2 MG/ML AMP ONE (01:37)
--- NOTE | 2020-10-22 01:46 | Anesthesiology Progress Note ---
Date of Service October 22, 2020 Anesthesia Post Procedure Vital Signs Vital Signs: Temp Pulse Pulse Resp BP BP Pulse Ox 10/22/20 01:38 36.8 C 82 15 115/73 96 10/21/20 23:18 37 C 79 16 119/80 98 10/21/20 21:31 37.2 C 86 16 108/74 97 10/21/20 20:30 37.0 C 93 H 18 109/73 10/21/20 19:26 37.6 C H 85 16 107/72 95 10/21/20 18:20 37.7 C H 10/21/20 17:15 38.3 C H 92 H 18 113/75 99 10/21/20 17:00 91 H 18 10/21/20 16:50 91 H 19 10/21/20 16:40 105 H 17 10/21/20 16:31 100 H 17 10/21/20 16:30 98 H 18 128/77 10/21/20 16:20 95 H 16 10/21/20 16:15 97 H 16 110/77 10/21/20 16:10 89 15 10/21/20 16:01 91 H 16 10/21/20 16:00 89 15 111/73 10/21/20 15:50 88 16 10/21/20 15:45 92 H 15 107/66 10/21/20 15:40 105 H 16 10/21/20 15:31 86 15 10/21/20 15:30 85 15 115/73 10/21/20 15:20 86 15 10/21/20 15:15 86 15 113/65 10/21/20 15:10 86 15 10/21/20 15:01 82 17 10/21/20 15:00 101 H 15 99/66 L 10/21/20 14:45 81 16 109/68 95 10/21/20 14:30 84 16 114/72 96 10/21/20 14:15 83 15 105/64 95 10/21/20 14:00 76 19 104/72 10/21/20 13:30 72 14 107/65 99 10/21/20 13:15 73 15 99/63 L 99 10/21/20 13:00 68 18 101/60 100 10/21/20 12:45 78 15 97/57 L 100 10/21/20 12:30 70 15 111/59 L 100 10/21/20 12:15 69 18 108/60 99 10/21/20 12:00 102 H 21 114/79 100 10/21/20 11:45 72 15 96/59 L 100 10/21/20 11:40 74 19 95/58 L 99 10/21/20 11:30 82 16 102/60 10/21/20 11:15 78 16 99/63 L 98 10/21/20 10:04 71 13 103/58 L 98 10/21/20 10:00 67 15 92/55 L 98 10/21/20 09:59 70 17 89/57 L 98 10/21/20 09:55 60 16 75/45 L 99 10/21/20 09:52 51 L 15 75/37 L 99 10/21/20 07:56 37.0 C 81 18 132/95 100 Pain Intensity Lower Abdomen: Pain Intensity: 2 Transfer of Care Handoff Completed per policy Notes Mental Status: alert / awake / arousable Patient Amnestic to Procedure: Yes Nausea / Vomiting: adequately controlled Pain: adequately controlled Airway Patency, RR, SpO2: stable & adequate BP & HR: stable & adequate Hydration State: stable & adequate Anesthetic Complications: no major complications apparent
[2020-10-22] MEDS: CLINDAMYCIN 900 MG in DEXTROSE 5% 50 ML IV SCH (04:01)
[2020-10-22] MEDS: METHYLERGONOVINE MALEATE 0.2 MG TAB PO SCH ×3 (04:01→08:48)
[2020-10-22] MEDS ORDERED: SODIUM CHLORIDE 0.9% 1000ML 1,000 ML IV SCH (06:00)
--- NOTE | 2020-10-22 07:08 | Operative Report (OR) ---
DATE OF SURGERY: 10/22/2020. PREOPERATIVE DIAGNOSES: The patient is a 30-year-old G2, P2-0-0-2, who is status post primary section on 10/13/2020, presented with heavy vaginal bleeding, secondary hemorrhage, large blood clots in the uterus, dropping H and H. POSTOPERATIVE DIAGNOSES: The patient is a 30-year-old G2, P2-0-0-2, who is status post primary section on 10/13/2020, presented with heavy vaginal bleeding,secondary hemorrhage, large blood clots in the uterus, dropping H and H. PROCEDURE: Examination under anesthesia, suction of blood clots from uterine cavity, and dilatation and curettage under ultrasound guidance. SURGEON: Alvaro Wei MD MATERIALS MGMT TECH: DILSHAD Christy, OR nurse. ANESTHESIA: General. ANESTHESIOLOGIST: Dr. Robert. COMPLICATIONS: None. DRAINS: Gonzalez catheter drained 500 mL of clear urine. ESTIMATED BLOOD LOSS: Emptied about 450 mL of dark blood clots from uterine cavity, rest of the estimated blood loss was minimal. DESCRIPTION OF PROCEDURE: The patient was taken to the operating room where general anesthesia was given without difficulty. She was placed in dorsal lithotomy position, prepared and draped in the usual sterile fashion. Gonzalez catheter was already draining the bladder and telemetry technician performed an abdominal ultrasound and confirmed a large uterus with blood clots in it and then examination under anesthesia was done and a 20-week size of bulky uterus was found. Cervix was 1-2 cm dilated already. Speculum was placed. Cervix was visualized, grasped with ring forceps from anterior lip. I felt a blood clot in the lower uterine segment with a finger and then suction tip was introduced from that os. Under ultrasound guidance, those clots were emptied, suctioned. We had to change the suction specimen cannister 3 times to prevent blockage of the clots and totally we suctioned about 450 mL of blood clots. An ultrasound showed an empty uterine cavity and a small curette was used to gently curette the uterus. I started from posterior wall, which was empty and then lateral molina, which were empty, and then I only gently scraped upper anterior uterine wall, avoided mid and lower uterine wall, and I did not get any tissue. Ultrasound confirmed an empty uterus and thin endometrial lining. The procedure was ended at this point and the uterus was massaged and found to be much smaller, about 12-week size. IV oxytocin was running, IM Methergine was given. She was also given 1000 mcg of rectal Cytotec. She received 2 g of cefazolin before surgery and 900 mg of clindamycin. She was cleaned off, taken off from lithotomy position. She was taken to recovery room in stable condition. No complications happened and I was present during whole procedure. Job ID: [id number] [facility]
--- NOTE | 2020-10-22 08:32 | Obstetrical Progress Note ---
Date of Service October 22, 2020 Subjective Ambulation: ambulating normally Voiding: no voiding problems Passing Gas:: Yes Diet Tolerance:: regular diet Lochia:: Small Feeding Type:: breast feeding incision c/d/i fundus below U and firm no edema neg Susan's for d/c today f/u in office next week Results & Data ([facility]) Vital Signs (Past 12 Hours) Vital Signs Temp Pulse Pulse Resp BP BP Pulse Ox 10/22/20 06:25 37.2 C 84 16 111/77 96 10/22/20 05:25 37.6 C H 90 16 119/83 97 10/22/20 04:55 37.2 C 90 16 109/75 98 10/22/20 04:39 37.1 C 80 16 113/80 98 10/22/20 03:45 37.2 C 90 90 16 112/79 112/79 98 10/22/20 02:45 37.1 C 79 79 16 115/81 115/81 98 10/22/20 02:15 36.8 C 79 13 119/77 98 10/22/20 02:10 85 13 115/77 98 10/22/20 02:00 78 13 115/73 97 10/22/20 01:50 36.7 C 94 H 15 107/79 97 10/22/20 01:45 36.8 C 80 13 115/73 96 10/22/20 01:40 85 15 117/79 96 10/22/20 01:38 36.8 C 82 15 115/73 96 10/22/20 01:30 36.8 C 90 13 108/70 96 10/22/20 01:18 36.8 C 84 17 116/71 95 10/21/20 23:18 37 C 79 16 119/80 98 10/21/20 21:31 37.2 C 86 16 108/74 97
[2020-10-22] MEDS: FERROUS SULFATE 325 MG TAB PO SCH (08:48)
[2020-10-22 09:31] LABS: Hematocrit (blood only) 30.5 % (37-47); Hemoglobin 10.4 g/dL (12.0-16.0); Mean Corpuscular Hemoglobin 29.9 pg (25-34); Mean Corpuscular Hgb Conc 34.1 g/dL (32-36); Mean Corpuscular Volume 87.6 fL (80-100); Mean Platelet Volume 9.2 fL (7.4-10.4); Platelet Count 168 K/uL (130-400); RDW Coefficient of Variation 13.3 % (11.5-14.5); RDW Standard Deviation 43.1 fL (36.4-46.3); Red Blood Count 3.48 M/uL (4.2-5.4); White Blood Count 5.96 K/uL (4.8-10.8)
--- NOTE | 2020-10-22 09:45 | Ultrasound Report ---
US guide intraoperative CLINICAL HISTORY: 30 years-old Female presenting with OR. TECHNIQUE: Real-time grayscale ultrasound imaging of the pelvis was performed for a focused evaluatio n at the site of clinical concern. COMPARISON: None. FINDINGS: Enlarged uterus with heterogeneous tissue within its lumen is seen. Small amount of free fluid is see n within lower pelvis. Short-term follow-up is recommended. IMPRESSION: 1. Enlarged uterus with heterogeneous intraluminal material and small amount of free fluid within th e pelvis. Short-term follow-up is recommended. ACT 112: Positive. There are findings on this exam that require communication between the performing entity and the patient following Patient Test Result Information Act ([place] Act 112) guidelines. Electronically signed by: Luz Jung DO 10/22/2020 9:44 AM
[2020-10-22 09:53] LABS: ALC (manual) 1.51 K/uL (1.2-3.4); ANC (manual) 3.92 K/uL (1.4-6.5); Basophils # (manual) 0.05 K/uL (0-0.2); Basophils % (manual) 0.9 %; Eosinophils # (manual) 0.05 K/uL (0-0.5); Eosinophils % (manual) 0.9 %; Lymphocytes # (manual) 1.51 K/uL (1.2-3.4); Lymphocytes % (manual) 25.4 %; Monocytes # (manual) 0.26 K/uL (0.11-0.59); Monocytes % (manual) 4.4 %; Myelocytes # (manual) 0.15 K/uL (0-0); Myelocytes % (manual) 2.6 %; Neutrophils # (manual) 3.92 K/uL (1.4-6.5); Neutrophils % (manual) 65.8 %
--- NOTE | 2020-10-26 22:36 | Discharge Summary (DS) ---
DATE OF DISCHARGE: 10/22/2020. DETAILS OF ADMISSION: The patient is a 30-year-old G2, P2-0-0-2 female who is status post primary on 10/13/2020 for breech presentation. It was uncomplicated and she was discharged on day #2. She presented to the ER on 10/21/2020 morning with heavy vaginal bleeding, passing large clots. She was dizzy and passing out. When she presenting to the ER, her vital signs were stable and her H and H was stable at 9.7/29.3. Her bleeding was minimal. She was admitted to Women's Health floor for observation and repeat H and Hs. She was started on IV oxytocin and Methergine series and she was given rectal Cytotec. She was seen observed all day, she was comfortable with minimal cramping and bleeding was minimal. Her H and H dropped to 9.1/27.1 and a repeat H and H at night was 7.9/23.1 with a slightly low fibrinogen. Her uterus was getting larger and boggy. Decision was made to take her to the OR for evacuation of uterine clots and possible D and C under ultrasound guidance. She had uncomplicated surgery, emptied blood clots from uterus and the bleeding was minimal. See dictated operative note for details. On postoperative period, the patient was doing well. Vital signs stable, afebrile. She was given 2 units of packed red blood cells and her H and H increased to 10.4/30.5 and she was discharged home on postop day #1. DISCHARGE INSTRUCTIONS: Were given. DISCHARGE MEDICATIONS: Prescriptions were written for pain. She is to be seen in the office in a week. Job ID: [id number] [facility]
== END 2020-10-22 11:20 | disposition home or self-care (01) | DRG 769 ==
LOC: ED 07:51 → 4S2 14:09 → INTOOBSV 14:09 → 4S2 17:08